=== PATIENT | female | born 1945 | race Caucasian/White ===

== ENCOUNTER → 2017-11-13 10:26 | Outpatient (CLI) | payer MEDICARE, OTHER, SELFPAY ==
--- NOTE | 2017-11-13 10:29 | US_ITS ---
STUDY: THYROID ULTRASOUND REASON FOR EXAM: Female, 72 years old. Thyroid nodule TECHNIQUE: Ultrasound evaluation of the thyroid was performed with real-time and static stahl-scale imaging. COMPARISON: None. FINDINGS: RIGHT LOBE: The right lobe of the thyroid gland measures 4.4 x 2.0 x 2.0 cm. There is a heterogeneous echotexture. There are multiple right thyroid nodules: 9 x 7 x 7 mm hypoechoic nodule, 9 x 8 x 6 mm complex nodule, 6 x 6 x 4 mm complex nodule , 8 x 7 x 5 mm isoechoic solid nodule and a 8 x 6 x 4 mm slightly hypoechoic solid nodule. All of the nodules are regular well-defined nodules. LEFT LOBE: The left lobe of the thyroid gland measures 3.8 x 1.5 x 1.6 cm. There is a heterogeneous echotexture. There are no demonstrated solid, cystic or complex lesions. ISTHMUS: The isthmus measures 3 millimeter. US/Thyroid IMPRESSION: Heterogeneous thyroid. Multiple right thyroid nodules as described above. Electronically Signed: Marisabel Vazquez MD at 21:27 EST , Service support ,
== END ==
PROVIDERS: Family Provider Family Medicine; PCP Family Medicine; Visit Provider Surgery
DX: E04.1 Nontoxic single thyroid nodule (principal); R93.8 Abnormal findings on diagnostic imaging of other specified body structures
CPT/HCPCS: 76536

== ENCOUNTER 2017-11-17 09:40 | Day surgery (SDC) | payer MEDICARE, OTHER, SELFPAY ==
[2017-11-17] VITALS (9 sets, daily range): BP systolic 101–122; BP diastolic 67–76; PULSE 59–77; RESP 16–18; TEMP 36.1–37.1; O2SAT 96–100; BMI 26.9
--- NOTE | 2017-11-17 09:54 | EKG12_ITS ---
Test Reason : PRE-OP Blood Pressure : / mmHG Vent. Rate : 072 BPM Atrial Rate : 072 BPM P-R Int : 144 ms QRS Dur : 072 ms QT Int : 390 ms P-R-T Axes : 041 -03 036 degrees QTc Int : 427 ms Normal sinus rhythm Normal ECG No previous ECGs available Confirmed by LI MUSTAFA, SIVAN ([id number]), video news editor SETH COOK ([id number]) on 11/19/2017 4:17:59 PM Referred By: Bam Arambula Confirmed By:SIVAN JEFFERSON MD
[2017-11-17 10:31] LABS: Hematocrit 40.2 % (37-47); Hemoglobin 12.7 g/dl (12.0-15.0); Mean Corp Hgb Conc 31.6 g/gl (32-36); Mean Corpuscular Hgb 28.3 pg (27.0-32.0); Mean Corpuscular Volume 89.7 fL (81-99); Platelet Count 262 K/mm3 (150-450); RBC Distribution Width CV 15.2 % (11.6-14.6); RBC Distribution Width SD 49.8 fl (35.1-43.9); Red Blood Count 4.48 M/mm3 (4.2-5.4); White Blood Count 6.8 K/mm3 (4.4-11.0)
[2017-11-17 10:34] LABS: Scan Indicated on CBC? Y/N NO
[2017-11-17 10:44] LABS: Anion Gap 6 (5-15); BUN 11 mg/dL (7-18); BUN/Creat Ratio 13.1 RATIO (10-20); Calcium,Total 9.3 mg/dL (8.5-10.1); Chloride 113 mmol/L (98-107); Creatinine, Serum 0.84 mg/dL (0.55-1.02); EST Glomerular Filtration Rate 71 mL/min (>60); Est Glom Filt Rate - Afr Amer 86 mL/min (>60); Estimated Creatinine Clearance 56.08 ml/min; Glucose 89 mg/dL (74-106); Sodium Level 144 mmol/L (136-145)
[2017-11-17] MEDS: Bupivacaine Mpf 0.5% 30 ML VIAL (11:24)
[2017-11-17] MEDS: Clindamycin 900 MG/50 ML BAG 75 MG IV (12:00)
--- NOTE | 2017-11-17 12:08 | PCM.DC.POR ---
Discharge Diet: No Restrictions - Pain medication may cause nausea. You should typically eat light foods as you take your pain medication. Discharge Activity: Return to Normal Activity, May Shower - Leave the bandage on for 2-3 days. When you remove the bandage, leave the steri-strips intact until they fall off. Additional Activity Instructions:: May not drive, work with heavy equipment, or sign legal documents for [address] if you are no longer taking narcotic pain medications. You may drive when you are no longer taking pain medications. Additional Dressing/Incision Instructions:: Leave the bandage on for 2-3 days. When you remove the bandage, leave the steri-strips intact until they fall off. Allergies/Adverse Reactions: Allergies iodine Allergy (Mild, Verified 11/14/17 10:09) Rash promethazine [From Phenergan] Allergy (Mild, Verified 11/14/17 10:09) Unknown amoxicillin [From Augmentin] Allergy (Unknown, Verified 11/14/17 10:09) Unknown clavulanic acid [From Augmentin] Allergy (Unknown, Verified 11/14/17 10:09) Unknown codeine Allergy (Unknown, Verified 11/14/17 10:09) Unknown ondansetron [From Zofran (as hydrochloride)] Allergy (Unknown, Verified 11/14/17 10:09) Unknown can tolerate sublingual Medications to take at Discharge fiber chewable tablet 2 - 4 tab PO BID 11/12/17 multivitamin tablet 1 tab PO QDAY 11/12/17 ondansetron 4 mg disintegrating tablet 4 mg PO Q4H 11/12/17 Hydrocodone Bitart/Apap 5-325 [[place] 5MG-325MG] 1 tablet PO Q6H PRN PRN 3 Days #8 tablet 11/17/17 The following prescriptions were given: Hydrocodone Bitart/Apap 5-325 [[place] 5MG-325MG] 1 tablet PO Q6H PRN PRN 3 Days #8 tablet PRN Reason: Pain Primary Care Physician: Jovon Harrison [Primary Care Provider] - Please Follow Up With: Bam Arambula MD - [phone] When: Office follow up can be as needed
--- NOTE | 2017-11-17 12:43 | PCM.OPRPT ---
Problem List (1) History of colon cancer Status: Acute Report of Operation Date of Procedure: 11/17/17 Pre-Operative Diagnosis: Recently resected colon cancer Post-Operative Diagnosis: Same Surgery/Procedure Performed:: Right internal jugular 6 [place] PowerPort placement Description of Surgical Findings:: Timeout and informed consent was obtained. 72-year-old female was taken to the operating place upon the table. She underwent monitored anesthesia care local anesthetic. Clindamycin 900 mg were given intravenously preoperatively. The right neck and chest were sterilely prepped and draped. Ultrasound was used to identify the right internal jugular vein. 1% lidocaine mixed 50-50 with 0.5% Marcaine was used as a local anesthetic. Throughout the procedure total of 17 cc was used. Local was instilled. Micropuncture needle inserted. Micropuncture wire inserted. Micropuncture sheath inserted. Fluoroscopy demonstrated good positioning. Local was instilled down upon the chest wall. Transverse incision was created and a subtenons pocket was created with electrocautery. The tubing was tunneled from the chest to the neck site. A sheath dilator was placed over the micropuncture wire and exchanged out for an 035 J-wire. Sheath dilator was placed over the J-wire. The wire and dilator were removed. The catheter was advanced to the sheath. The sheath was split. The catheter was positioned at the SVC atrial junction. It was amputated and connected the port secured to the port attachment device. The port was placed in the pocket and secured there with interrupted 2-0 silk. Skin edges approximated up to 3-0 Vicryl in interrupted 5-0 Vicryl subdermal stitches. The neck was closed with interrupted 5-0 Vicryl. The port was accessed it aspirated easily was flushed with saline and then 2.5 cc of heparinized saline. Steri-Strips Telfa OpSite dressings applied. Sponge instrument and needle counts were reported to the surgeon to be correct. Blood loss was minimal. No apparent complications. She was taken to the recovery area in satisfactory condition. Stat portable chest x-ray is pending. Blood loss minimal. Drains none. Specimens none. PowerPort reference #[id number]. Lot number [id number]. Date of expiration is 08/07/2019. Bam Arambula M.D., F.A.C.S. Type of Anesthesia:: Local MAC
--- NOTE | 2017-11-17 12:46 | OP.PCM_ITS ---
Problem List (1) History of colon cancer Status: Acute Report of Operation Date of Procedure: 11/17/17 Pre-Operative Diagnosis: Recently resected colon cancer Post-Operative Diagnosis: Same Surgery/Procedure Performed:: Right internal jugular 6 [place] PowerPort placement Description of Surgical Findings:: Timeout and informed consent was obtained. 72-year-old female was taken to the operating place upon the table. She underwent monitored anesthesia care local anesthetic. Clindamycin 900 mg were given intravenously preoperatively. The right neck and chest were sterilely prepped and draped. Ultrasound was used to identify the right internal jugular vein. 1% lidocaine mixed 50-50 with 0.5% Marcaine was used as a local anesthetic. Throughout the procedure total of 17 cc was used. Local was instilled. Micropuncture needle inserted. Micropuncture wire inserted. Micropuncture sheath inserted. Fluoroscopy demonstrated good positioning. Local was instilled down upon the chest wall. Transverse incision was created and a subtenons pocket was created with electrocautery. The tubing was tunneled from the chest to the neck site. A sheath dilator was placed over the micropuncture wire and exchanged out for an 035 J-wire. Sheath dilator was placed over the J-wire. The wire and dilator were removed. The catheter was advanced to the sheath. The sheath was split. The catheter was positioned at the SVC atrial junction. It was amputated and connected the port secured to the port attachment device. The port was placed in the pocket and secured there with interrupted 2-0 silk. Skin edges approximated up to 3-0 Vicryl in interrupted 5-0 Vicryl subdermal stitches. The neck was closed with interrupted 5-0 Vicryl. The port was accessed it aspirated easily was flushed with saline and then 2.5 cc of heparinized saline. Steri-Strips Telfa OpSite dressings applied. Sponge instrument and needle counts were reported to the surgeon to be correct. Blood loss was minimal. No apparent complications. She was taken to the recovery area in satisfactory condition. Stat portable chest x-ray is pending. Blood loss minimal. Drains none. Specimens none. PowerPort reference #[id number]. Lot number [id number]. Date of expiration is 08/07. Bam Arambula M.D., F.A.C.S. Type of Anesthesia:: Local MAC
--- NOTE | 2017-11-17 12:50 | RAD_ITS ---
STUDY: X-RAY CHEST REASON FOR EXAM: Female, 72 years old. Right port placement. TECHNIQUE: Single AP portable view of the chest. COMPARISON: None. FINDINGS: A right-sided kenn catheter has been placed. The tip is in the midportion of the superior vena cava. The lungs are clear and expanded. Scattered calcified granulomas. There is no demonstrated pleural abnormality. Normal size heart. Normal mediastinum and shantell. Normal visualized pulmonary arteries. There is atherosclerotic calcification of the aortic arch with tortuosity. Normal visualized thoracic spine. Normal visualized ribs, clavicles, and shoulders. There is no demonstrated abnormality of the visualized soft tissue structures of the upper abdomen. RAD/CXR for Line Placement IMPRESSION: The tip of the right catheter is in the midportion of the superior vena cava. Electronically Signed: Quinton Barrios MD at 13:24 EDT Tel [phone], Service support ,
== END 2017-11-17 14:25 | disposition home or self-care (01) ==
LOC: SDC 09:41 → AC 09:44
PROVIDERS: Family Provider Family Medicine; PCP Family Medicine; Visit Provider Surgery
PROC: (CPT 36558; principal; 2017-11-17 11:45)
DX: C19 Malignant neoplasm of rectosigmoid junction (principal); K43.2 Incisional hernia without obstruction or gangrene; E04.2 Nontoxic multinodular goiter; K80.20 Calculus of gallbladder without cholecystitis without obstruction; R93.8 Abnormal findings on diagnostic imaging of other specified body structures; Z93.2 Ileostomy status; Z86.718 Personal history of other venous thrombosis and embolism
CPT/HCPCS: 36558; 36415; 71045; 77001; 80048; 85027; 93005; J3010; J7120; C1788; J2405

== ENCOUNTER 2017-11-24 15:13 | Observation (INO) | payer MEDICARE, OTHER, SELFPAY ==
[2017-11-24] VITALS (10 sets, daily range): BP systolic 125–173; BP diastolic 69–81; PULSE 82–100; RESP 16–18; TEMP 36.7–37.1; O2SAT 95–98; BMI 28.1; BMI 26.4
--- NOTE | 2017-11-24 15:33 | ED.VISSUMM ---
- ER Visit Summary Date of Service: 11/24/17 Chief Complaint: Chest pain History of Present Illness: The patient is a [address] Almanzar and Dr. Shaver. She was getting a dose of oxaliplatin for the first time today. Towards the end of this toe she developed an allergic reaction with hives and vomiting. Patient reports that she vomited approximately 10 times. No blood or emesis. At the end of this she developed chest pain. She describes as a pressure that is 7 out of 10 hours and 510 currently. Is worsened by nothing and relieved by holding pressure on it. She denies any shortness of breath or diaphoresis with this. Patient has family history as her only risk factor for coronary artery disease. She denies any chest pain or change in dyspnea exertion in the past month. No ankle swelling or calf pain. She does however have a history of a DVT back in 2014 and is not anticoagulated at this time. Physical Examination: Vitals: Stable. Afebrile. General: Well-nourished and well-developed. Head: Normocephalic atraumatic. Neck: Supple, no lymphadenopathy. No JVD. Nontender. Cardiovascular: Regular rate and rhythm. No murmurs. Respiratory: No respiratory distress. Clear to auscultation bilaterally. Abdominal: Soft, nontender, nondistended, normal bowel sounds. No guarding, rebound, or peritoneal signs. Back: Nontender. Extremities: Nontender, no edema. Skin: Normal color, no rash. Neurologic: Alert and oriented ?3. Cranial nerves II through XII are intact. Normal strength and sensation. Psych: Normal affect. Test Results: EKG is sinus at 89 with no acute changes. Troponin 0 0.04. Chem-7 is more for glucose 128. CBC is marked for 7 neutrophils 88 and leukocytes of 11. Lower extreme Dopplers were negative. Chest x-ray shows trace left lower lobe atelectasis and a poor inspiration. Repeat EKG is unchanged. Repeat troponin is 0.07. Emergency Department Course and Treatment: Patient continued to have chest pain while here. She refused pain medications. She was given aspirin p.o. Treatment Plan: Had a prolonged discussion the patient and her daughter that with this pain coming just after vomiting that I suspect it is musculoskeletal in etiology. However, with her troponin increasing she will be admitted for further evaluation and treatment. She was discussed with Dr. Shaver who states that she does not need any further treatment for the allergic reaction. Instructed to follow-up with Dr. Shaver as previously scheduled. Follow-up with Dr. Almanzar for further evaluation of the chest pain if it is not improving. Return to the emergency department for any worsening symptoms. Disposition: Admitted in stable condition. Impression: 1. Colorectal cancer on chemotherapy. 2. Adverse reaction to ox [place]. 3. Vomiting. 4. Atypical chest pain. 5. NEGRITO score of 1. This note was generated with [employer] dictation software. It may contain incorrect words, spelling, and punctuation that were not noted in review of the chart prior to signing ED Disposition - Plan for ED Patient: Chief Complaint: Chest Pain Referrals: Jovon Harrison [Primary Care Provider] -
--- NOTE | 2017-11-24 15:43 | ED.DCSUM_ITS ---
- ER Visit Summary Date of Service: 11/24/17 Chief Complaint: Chest pain History of Present Illness: The patient is a [address] Almanzar and Dr. Shaver. She was getting a dose of oxaliplatin for the first time today. Towards the end of this toe she developed an allergic reaction with hives and vomiting. Patient reports that she vomited approximately 10 times. No blood or emesis. At the end of this she developed chest pain. She describes as a pressure that is 7 out of 10 hours and 510 currently. Is worsened by nothing and relieved by holding pressure on it. She denies any shortness of breath or diaphoresis with this. Patient has family history as her only risk factor for coronary artery disease. She denies any chest pain or change in dyspnea exertion in the past month. No ankle swelling or calf pain. She does however have a history of a DVT back in 2014 and is not anticoagulated at this time. Physical Examination: Vitals: Stable. Afebrile. General: Well-nourished and well-developed. Head: Normocephalic atraumatic. Neck: Supple, no lymphadenopathy. No JVD. Nontender. Cardiovascular: Regular rate and rhythm. No murmurs. Respiratory: No respiratory distress. Clear to auscultation bilaterally. Abdominal: Soft, nontender, nondistended, normal bowel sounds. No guarding, rebound, or peritoneal signs. Back: Nontender. Extremities: Nontender, no edema. Skin: Normal color, no rash. Neurologic: Alert and oriented ?3. Cranial nerves II through XII are intact. Normal strength and sensation. Psych: Normal affect. Test Results: EKG is sinus at 89 with no acute changes. Troponin 0 0.04. Chem- 7 is more for glucose 128. CBC is marked for 7 neutrophils 88 and leukocytes of 11. Lower extreme Dopplers were negative. Chest x-ray shows trace left lower lobe atelectasis and a poor inspiration. Repeat EKG is unchanged. Repeat troponin is 0.07. Emergency Department Course and Treatment: Patient continued to have chest pain while here. She refused pain medications. She was given aspirin p.o. Treatment Plan: Had a prolonged discussion the patient and her daughter that with this pain coming just after vomiting that I suspect it is musculoskeletal in etiology. However, with her troponin increasing she will be admitted for further evaluation and treatment. She was discussed with Dr. Shaver who states that she does not need any further treatment for the allergic reaction. Instructed to follow-up with Dr. Shaver as previously scheduled. Follow-up with Dr. Almanzar for further evaluation of the chest pain if it is not improving. Return to the emergency department for any worsening symptoms. Disposition: Admitted in stable condition. Impression: 1. Colorectal cancer on chemotherapy. 2. Adverse reaction to ox [place]. 3. Vomiting. 4. Atypical chest pain. 5. NEGRITO score of 1. This note was generated with [employer] dictation software. It may contain incorrect words, spelling, and punctuation that were not noted in review of the chart prior to signing ED Disposition - Plan for ED Patient: Chief Complaint: Chest Pain Referrals: Jovon Harrison [Primary Care Provider] -
--- NOTE | 2017-11-24 15:46 | VDLE_ITS ---
Reason For Study: Chest Pain RIGHT LEFT GSV is normal. GSV is normal. CFV is compressible, spontaneous, phasic, CFV is compressible, spontaneous, phasic, competent and demonstrates normal competent, and demonstrates normal augmentation. augmentation. FV is compressible, spontaneous, phasic, FV is compressible, spontaneous, phasic, competent and demonstrates normal competent and demonstrates normal augmentation. augmentation. POP V is compressible, spontaneous, phasic, POP V is compressible, spontaneous, phasic, competent and demonstrates normal competent and demonstrates normal augmentation. augmentation. T/P Trunk is compressible. T/P Trunk is compressible. PTV is compressible. PTV is compressible. RT PerV is compressible. LT PerV is compressible. Procedure Exam performed portable in ED. A preliminary report was called and/or faxed to Dr. Lombardi. Interpretation Summary Deep veins of the lower extremities are bilaterally patent and compressible segmentally. There is no evidence of deep vein thrombosis on either side. Valvular competence appears intact within the proximal deep venous systems bilaterally. The greater saphenous veins appear bilaterally patent and compressible segmentally. Ordering Physician: Anurag Lombardi Referring Physician: Jovon Harrison Performed By: Veronique Lew, MIRNA, RVT
--- NOTE | 2017-11-24 15:46 | EKG12_ITS ---
Test Reason : Blood Pressure : / mmHG Vent. Rate : 087 BPM Atrial Rate : 087 BPM P-R Int : 148 ms QRS Dur : 076 ms QT Int : 390 ms P-R-T Axes : 052 -11 040 degrees QTc Int : 469 ms Normal sinus rhythm Normal ECG Confirmed by SHRUTI BRAND ([id number]), manager editorial SETH COOK ([id number]) on 11/27/2017 2:33:23 PM Referred By: OCTAVIA Confirmed By:SHRUTI BRAND
--- NOTE | 2017-11-24 15:50 | RAD_ITS ---
STUDY: X-RAY CHEST REASON FOR EXAM: Female, 72 years old. Numbness tingling history of rectal cancer chemotherapy TECHNIQUE: Single frontal view of the chest. COMPARISON: 2017 chest x-ray FINDINGS: There is a right-sided Port-A-Cath with the tip in the spur vena cava. The lungs are underexpanded. There is trace linear density in the left lung base. There is no demonstrated pleural abnormality. There is borderline cardiomegaly. Normal mediastinum and shantell. Normal visualized pulmonary arteries. Normal visualized aortic arch and descending thoracic aorta. There are diffuse degenerative changes of the visualized thoracic spine. Normal visualized ribs, clavicles, and shoulders. There is no demonstrated abnormality of the visualized soft tissue structures of the upper abdomen. RAD/Chest 1 View (Portable) IMPRESSION: Trace left lower lobe atelectasis underexpansion of the lungs. Relatively stable chest. Port-A-Cath. Electronically Signed: Maegan De Paz MD at 16:07 EDT Tel , Service support ,
[2017-11-24 15:56] LABS: Absolute Lymphocyte Count 0.68 X10^3/ul (0.83-4.51); Absolute Neutrophil Count 5.4 X10^3/uL (2.0-7.7); Basophil# 0.02 X10^3/uL; Basophil% 0.3 % (0-1); Hematocrit 39.6 % (37-47); Hemoglobin 12.9 g/dl (12.0-15.0); Lymphocyte # 0.68 X10^3/ul (4.0); Lymphocyte % 11.1 % (19-41); Mean Corp Hgb Conc 32.6 g/gl (32-36); Mean Corpuscular Hgb 28.6 pg (27.0-32.0); Mean Corpuscular Volume 87.8 fL (81-99); Mean Platelet Vol. 10.4 fl (6.2-12.0); Monocyte# 0.05 X10^3/uL; Monocyte% 0.8 % (0-10); Neutrophil # 5.36 X10^3/uL (2.7-7.7); Neutrophil % 87.6 % (47-70); POSITIVE COUNT NO; POSITIVE DIFFERENTIAL NO; POSITIVE MORPHOLOGY NO; Platelet Count 261 K/mm3 (150-450); RBC Distribution Width CV 14.9 % (11.6-14.6); RBC Distribution Width SD 47.8 fl (35.1-43.9); Red Blood Count 4.51 M/mm3 (4.2-5.4); White Blood Count 6.1 K/mm3 (4.4-11.0)
[2017-11-24 16:13] LABS: Anion Gap 7 (5-15); BUN 11 mg/dL (7-18); Calcium,Total 9.3 mg/dL (8.5-10.1); Chloride 106 mmol/L (98-107); Creatinine, Serum 0.78 mg/dL (0.55-1.02); EST Glomerular Filtration Rate 77 mL/min (>60); Est Glom Filt Rate - Afr Amer 93 mL/min (>60); Glucose 128 mg/dL (74-106); Potassium 3.8 mmol/L (3.5-5.1); Sodium Level 139 mmol/L (136-145)
[2017-11-24] MEDS: 0.9% Normal Saline 1,000 ML 150 ML IV (17:05)
--- NOTE | 2017-11-24 17:32 | EKG12_ITS ---
Test Reason : Blood Pressure : / mmHG Vent. Rate : 089 BPM Atrial Rate : 089 BPM P-R Int : 154 ms QRS Dur : 078 ms QT Int : 392 ms P-R-T Axes : 048 -01 039 degrees QTc Int : 476 ms Normal sinus rhythm Normal ECG Confirmed by SHRUTI BRAND ([id number]), editor index SETH COOK ([id number]) on 11/27/2017 2:33:36 PM Referred By: NELIDA Confirmed By:SHRUTI BRAND
[2017-11-24] MEDS: DiphenhydrAMINE 50 MG/ML Syringe 25 MG IV (18:03)
--- NOTE | 2017-11-24 19:15 | PCM.HP.STD ---
Problem List (1) Chest pain Status: Acute Qualifiers: Chest pain type: unspecified Qualified Code(s): R07.9 - Chest pain, unspecified (2) History of colon cancer Status: Chronic (3) GERD (gastroesophageal reflux disease) Status: Chronic History of Present Illness Date of Admission: 11/24/17 Chief Complaint: chest pain The patient is a 72 year old female patient who complains of chest pain. The onset of the pain began after experiencing severe adverse reaction to chemotherapy earlier today causing her to vomit 10 times. She then noticed having substernal pressure/ pain that radiated to the left shoulder and left arm. The discomfort persists at this point. Her initial troponin was .04 and subsequent repeat in the ER was .07. It has been greater than 5 years since her last cardiac stress exam. She states her siblings have coronary artery disease. She will be admitted for further cardiac workup. Past Medical History Past Medical History (Chronic Problems): Chronic Problems (Last Updated 11/12/17 @ 08:13 by Domi Pitt) History of colon cancer (Chronic) GERD (gastroesophageal reflux disease) (Chronic) Allergies iodine Allergy (Mild, Verified 11/24/17 15:17) Rash promethazine [From Phenergan] Allergy (Mild, Verified 11/24/17 15:17) Unknown amoxicillin [From Augmentin] Allergy (Unknown, Verified 11/24/17 15:17) Unknown clavulanic acid [From Augmentin] Allergy (Unknown, Verified 11/24/17 15:17) Unknown codeine Allergy (Unknown, Verified 11/24/17 15:17) Unknown ondansetron [From Zofran (as hydrochloride)] Allergy (Unknown, Verified 11/24/17 15:17) Unknown can tolerate sublingual chlorhexadine Allergy (Mild, Uncoded 11/19/17 16:51) rash Home Medications: Ambulatory Orders Medication Instructions Recorded fiber chewable tablet 2 - 4 tab PO BID 11/12/17 multivitamin tablet 1 tab PO QDAY 11/12/17 ondansetron 4 mg disintegrating 4 mg PO Q4H PRN PRN 11/12/17 tablet Smoking Status: Never smoker - *Family History Sibling History Items: Heart Disease Review of Systems Constitutional: Denies: Chills, Fever, Weight Change HEENT: Denies: Head Aches, Sinus Congestion, Sinus Drainage Cardiovascular: Reports: Chest Pain, Chest Pressure, Heaviness. Denies: Palpitations Respiratory: Denies: Cough, Shortness of breath at rest, Sputum production Gastrointestinal: Denies: Abdominal Pain, Nausea, Vomiting Genitourinary: Denies: Dysuria Musculoskeletal: Reports: Arm Pain - left. Denies: Joint Pain, Joint Tenderness Skin: Denies: Rash, Wounds Neurological: Denies: Numbness, Tingling, Focal weakness Psychiatric: Denies: Anxiety, Depression, Homicidal Ideations, Suicidal Ideations Hematologic/ Lymphatic: Denies: Easy Bruising, Easy Bleeding VTE Information - Inpt Only VTE Present on Admission: No VTE Mechan Device Prophylaxis: None VTE Pharm Prophylaxis ordered?: Yes Patient Problems: Active and Suspected Problems (Last Updated 11/12/17 @ 08:13 by Domi Pitt) Chest pain (Acute) - Physical Exam General: Alert, Oriented x3, Cooperative HEENT: Atraumatic, Normocephalic Neck: Supple Lungs: Clear to auscultation, Normal air movement, No rhonchi, No wheeze, No rales Cardiovascular: Regular rate, Regular Rhythm, Normal S1, Normal S2, No murmurs Abdomen: Bowel Sounds Present, Soft, Non Tender Extremities: No edema, Capillary Refill Less than 3 Seconds Skin: No rashes Musculoskeletal: No Tenderness to Palpation of Joints or Extremities Neurological: Neuro grossly intact Psych/Mental Status: Normal Affect, Appropriate Vital Signs Temp Pulse Resp BP Pulse Ox 98.1 F 96 18 137/71 H 97 11/24/17 15:13 11/24/17 18:00 11/24/17 18:00 11/24/17 18:00 11/24/17 18:00 Oxygen Flow Rate (L/min) 2 Oxygen Delivery Method Room Air Weight: 174 lb 6.17 oz Body Mass Index (BMI) 28.1 Laboratory Tests Past 24 Hrs 11/24/17 11/24/17 11/24/17 15:30 15:30 17:40 WBC 6.1 RBC 4.51 Hgb 12.9 Hct 39.6 MCV 87.8 MCH 28.6 MCHC 32.6 RDW 14.9 H RDW Differential 47.8 H Plt Count 261 MPV 10.4 Immature Gran % (Auto) 0.200 Neut % (Auto) 87.6 H Lymph % (Auto) 11.1 L Coke % (Auto) 0.8 Eos % (Auto) 0.0 Baso % (Auto) 0.3 Absolute Neuts (auto) 5.4 Absolute Lymphs (auto) 0.68 L Total Counted Not Reportable Sodium 139 Potassium 3.8 Chloride 106 Carbon Dioxide 26.0 Anion Gap 7 BUN 11 Creatinine 0.78 Estim Creat Clear Calc 49.00 Est GFR (MDRD) Af Amer 93 Est GFR (MDRD) Non-Af 77 BUN/Creatinine Ratio 14.0 Glucose 128 H Calcium 9.3 Troponin I 0.04 0.07 H Assessment/Plan Active and Suspected Problems (Last Updated 11/12/17 @ 08:13 by Domi Pitt) Chest pain (Acute) Chronic conditions - colon cancer Plan - admit to progressive care unit - cycle cardiac enzymes - morphine, nitro (sparingly sibling had a severe reaction), aspirin and oxygen per routine - cbc, bmp in am - continue routine home medications - LMWH for DVT prophylaxis - nuclear exercise stress test in am when cardia markers remain negative Code Visit OBSV E&M: 68099 Initial observation care L2
[2017-11-24] MEDS: Aspirin 81 MG TAB.CHEW 324 MG PO (19:16)
[2017-11-24] MEDS: Acetaminophen 325 MG Tablet 650 MG PO (23:13)
[2017-11-25] VITALS (8 sets, daily range): BP systolic 97–133; BP diastolic 34–69; PULSE 57–79; RESP 16–18; TEMP 36.3–36.8; O2SAT 96–99
[2017-11-25 04:38] LABS: Absolute Lymphocyte Count 1.62 X10^3/ul (0.83-4.51); Absolute Neutrophil Count 10.5 X10^3/uL (2.0-7.7); Basophil# 0.01 X10^3/uL; Basophil% 0.1 % (0-1); Eosinophil# 0.02 X10^3/uL; Eosinophils% 0.1 % (0-5); Hematocrit 35.5 % (37-47); Hemoglobin 11.6 g/dl (12.0-15.0); Lymphocyte # 1.62 X10^3/ul (4.0); Lymphocyte % 12.1 % (19-41); Mean Corp Hgb Conc 32.7 g/gl (32-36); Mean Corpuscular Hgb 28.9 pg (27.0-32.0); Mean Corpuscular Volume 88.3 fL (81-99); Mean Platelet Vol. 10.3 fl (6.2-12.0); Neutrophil # 10.48 X10^3/uL (2.7-7.7); Neutrophil % 78.6 % (47-70); Platelet Count 278 K/mm3 (150-450); RBC Distribution Width CV 14.9 % (11.6-14.6); RBC Distribution Width SD 47.5 fl (35.1-43.9); Red Blood Count 4.02 M/mm3 (4.2-5.4); White Blood Count 13.4 K/mm3 (4.4-11.0)
[2017-11-25 04:39] LABS: POSITIVE COUNT NO; POSITIVE DIFFERENTIAL NO; POSITIVE MORPHOLOGY NO
[2017-11-25 04:45] LABS: Prothrombin Time (Protime)PT. 13.4 SECONDS (11.7-14.9)
[2017-11-25 04:46] LABS: Partial Thromboplast Time 27.5 Seconds (24.1-36.2)
[2017-11-25 05:10] LABS: ALB/GLOB Ratio 0.9 RATIO (0.9-2.4); AST(SGOT) 32 U/L (15-37); Alanine Aminotransfer ALT/SGPT 43 U/L (13-56); Alkaline Phosphatase 87 U/L (45-117); Anion Gap 8 (5-15); BUN 14 mg/dL (7-18); BUN/Creat Ratio 16.1 RATIO (10-20); Bilirubin, Direct 0.12 mg/dL (0.00-0.30); Chloride 109 mmol/L (98-107); Cholesterol 187 mg/dL (200); Creatinine, Serum 0.87 mg/dL (0.55-1.02); EST Glomerular Filtration Rate 69 mL/min (>60); Est Glom Filt Rate - Afr Amer 83 mL/min (>60); Estimated Creatinine Clearance 56.33 ml/min; Globulin 3.3 g/dL (2.2-4.2); Glucose 95 mg/dL (74-106); High Density Lipoprotein 56 mg/dL; Magnesium 1.9 mg/dL (1.6-2.6); Protein, Total 6.3 g/dL (6.4-8.2); Sodium Level 142 mmol/L (136-145); Triglycerides 101 mg/dL; Very Low Density Lipoprotein 20 mg/dL (5-40)
--- NOTE | 2017-11-25 05:55 | EKG12_ITS ---
Test Reason : AM EKG Blood Pressure : / mmHG Vent. Rate : 069 BPM Atrial Rate : 069 BPM P-R Int : 148 ms QRS Dur : 080 ms QT Int : 436 ms P-R-T Axes : 063 002 040 degrees QTc Int : 467 ms Normal sinus rhythm Normal ECG When compared with ECG of 24-NOV-2017 18:18, MANUAL COMPARISON REQUIRED, DATA IS UNCONFIRMED Confirmed by SHRUTI BRAND ([id number]), associate entertainment editor SETH COOK ([id number]) on 11/27/2017 3:11:28 PM Referred By: DR FELIPE Confirmed By:SHRUTI BRAND
[2017-11-25] MEDS: Aspirin E.C. 325 MG Tablet PO (06:15)
[2017-11-25] MEDS: Multivitamins,Therapeutic Tablet 1 TABLET PO (09:02)
--- NOTE | 2017-11-25 09:06 | STRESSREP ---
Stress Test Report Exercise myocardial perfusion stress test. 72-year-old lady with chest pain and abnormal cardiac enzymes postchemotherapy. Stress protocol: Resting EKG demonstrates sinus rhythm with rate of 63 bpm normal intervals and noted resting blood pressure is 118/74 mmHg. The patient exercised according to the regular Ashu protocol for total duration of 4 minutes and 30 seconds. The maximum heart rate attained was 157 bpm which was 104% of maximum predicted heart rate the maximum workload attained was 6.4 metabolic equivalents. At rest were no ST or T-wave changes noticed ischemia peak exercise upsloping ST changes only were noted with no meet the criteria for ischemia. The resting blood pressure is 118/74 with a peak blood pressure 148/60 mmHg. No clinical angina was noted. Myocardial perfusion protocol. 10.9 mCi of technetium 99m sestamibi was injected at rest. The patient exercised according to the regular Ashu protocol. 4-1/2 minutes 33.4 mCi of technetium 99m sestamibi was injected. Stress images were obtained stress and rest images were reconstructed and compared in the short axis vertical long and horizontal long axis. Gated images were also obtained Perfusion SPECT analysis: Review of the stress images demonstrate normal uptake of tracer noted in all areas of the myocardium the resting images similarly demonstrate normal uptake of tracer noted in all areas of the myocardium. No areas of reversibility are noted suggest ischemia. Gated SPECT analysis. The gated ejection fraction is noted to be 81%. Conclusion: Normal exercise myocardial perfusion stress test at a moderate workload with no evidence of ischemia. Preserved ejection fraction.
[2017-11-25] MEDS: Enoxaparin 40 MG/0.4 ML Syringe SC (09:14)
--- NOTE | 2017-11-25 09:42 | PCM.DC ---
- Discharge Diagnoses Current Active Problems: Current Active and Chronic Problems (Last Updated 11/12/17 @ 08:13 by Domi Pitt) Chest pain (Acute) You will use the following diet at home:: No restrictions Discharge Activity: Return to Normal Activity Call your doctor if you observe: Shortness of breath, Dizziness, Fainting spells, Chest pain Allergies/Adverse Reactions: Allergies iodine Allergy (Mild, Verified 11/24/17 15:17) Rash promethazine [From Phenergan] Allergy (Mild, Verified 11/24/17 15:17) Unknown amoxicillin [From Augmentin] Allergy (Unknown, Verified 11/24/17 15:17) Unknown clavulanic acid [From Augmentin] Allergy (Unknown, Verified 11/24/17 15:17) Unknown codeine Allergy (Unknown, Verified 11/24/17 15:17) Unknown ondansetron [From Zofran (as hydrochloride)] Allergy (Unknown, Verified 11/24/17 15:17) Unknown can tolerate sublingual chlorhexadine Allergy (Mild, Uncoded 11/19/17 16:51) rash Medications to take at Discharge fiber chewable tablet 2 - 4 tab PO BID 11/12/17 multivitamin tablet 1 tab PO QDAY 11/12/17 ondansetron 4 mg disintegrating tablet 4 mg PO Q4H PRN PRN 11/12/17 Primary Care Physician: Jovon Harrison [Primary Care Provider] - Please follow up with your Primary Care Physician in: 1 Week Please Follow Up With: Rajendra Shaver DO When: As scheduled Proposed Discharge Date: 11/25/17
--- NOTE | 2017-11-25 09:45 | PCM.DC.SUM ---
<Marsha Johnson - Last Filed: 11/25/17 09:51> Discharge Date and Diagnosis Date of Admission: 11/24/17 Date of Discharge: 11/25/17 - Primary Discharge Diagnosis Active and Suspected Problems (Last Updated 11/12/17 @ 08:13 by Domi Pitt) 1. Chest pain-ACS ruled out. Suspect chemo reaction. - Secondary Discharge Diagnosis Chronic Problems (Last Updated 11/12/17 @ 08:13 by Domi Pitt) History of colon cancer (Chronic) GERD (gastroesophageal reflux disease) (Chronic) Hospital Course and Treatment Imaging Results: Diagnostic Data Chest X-Ray 11/24/17 15:50 IMPRESSION: Trace left lower lobe atelectasis underexpansion of the lungs. Relatively stable chest. Port-A-Cath. Electronically Signed: Maegan De Paz MD at 16:07 EDT Tel , Service support , Operations: None Procedures: Stress test Summary of Care Provided: The patient is a 72 year old F who presented to the emergency room with chest pain and associated nausea. Patient sees Dr. Shaver for colon cancer and underwent her first chemotherapy treatment with oxaliplatin yesterday. Patient states in the middle of her chemotherapy treatment, she developed severe nausea followed by chest pain and hives. She denies further chest pain or nausea during admission. Troponin negative. She underwent nuclear stress test which was negative for ischemia. ACS ruled out. Suspect presenting symptoms were secondary to chemotherapy reaction. Her other past medical history includes hyperlipidemia, GERD, and colon cancer status post ileostomy, recently started on chemotherapy as noted above. Patient is stable for discharge home to follow-up with primary care physician and oncology as previously scheduled. Patient seen and examined prior to discharge. Heart rate regular rate and rhythm. Lungs clear. Abdomen soft, nontender, ostomy bag intact. Neuro grossly intact. Vital signs stable. Lab work unremarkable. Patient denies further chest pain and nausea/emesis. This patient was seen by TATYANA Chavez under the supervision of Dr. Flores. Discharge Diet: No Restrictions Discharge Activity: Return to Normal Activity Call your doctor if you observe: Shortness of breath, Dizziness, Fainting spells, Chest pain Home Medications: Medications to take at Discharge fiber chewable tablet 2 - 4 tab PO BID 11/12/17 multivitamin tablet 1 tab PO QDAY 11/12/17 ondansetron 4 mg disintegrating tablet 4 mg PO Q4H PRN PRN 11/12/17 Pantoprazole Sodium [Protonix] 40 mg PO DAILY #30 tab 11/25/17 Following Prescrptions Were Given to Patient: Pantoprazole Sodium [Protonix] 40 mg PO DAILY #30 tab Primary Care Physician: Jovon Harrison [Primary Care Provider] - Please follow up with your Primary Care Physician in: 1 Week Please Follow Up With: Rajendra Shaver DO When: As scheduled Disposition: Home Minutes spent on discharge:: 35 Patient Condition:: Stable Medical Necessity - Tobacco Use Smoking Status: Never smoker Meaningful Use Info Meaningful Use Diagnoses (Choose all that apply): None applicable <BaldevjessabeulahYusuf E - Last Filed: 11/25/17 14:59> Discharge Date and Diagnosis - Secondary Discharge Diagnosis Chronic Problems (Last Updated 11/12/17 @ 08:13 by Domi Pitt) History of colon cancer (Chronic) GERD (gastroesophageal reflux disease) (Chronic) Hospital Course and Treatment Summary of Care Provided: Hospitalist note: Discharge summary above reviewed and I agree with above discharge plan. Patient was admitted with chest pain. She had a history of colon cancer and she received her first chemotherapy treatment one day before admission. Her EKG revealed normal sinus rhythm without evidence of acute ischemic changes. Her first troponin was 0.04 and the second 1 was 0.07 and then came down to 0.05. Chest x-ray showed no acute infiltrate, consolidation or effusion. Her routine blood work was unremarkable. She underwent nuclear stress test that reported as negative without evidence of stress-induced myocardial ischemia. Patient symptoms improved. Her symptoms attributed to possible reaction to chemotherapy. GERD is under likely possibility as patient complains of chronic heartburn and she was on PPI in the past. Patient discharged home in a stable medical condition, discharged on Protonix 40 mg p.o. daily, continued on her home medication without any changes, recommended follow-up with PCP in 1 week. Code Visit OBSV E&M: 71389 Observation care discharge
--- NOTE | 2017-11-25 09:51 | DS.PCM_ITS ---
<Marsha Johnson - Last Filed: 11/25/17 09:51> Discharge Date and Diagnosis Date of Admission: 11/24/17 Date of Discharge: 11/25/17 - Primary Discharge Diagnosis Active and Suspected Problems (Last Updated 11/12/17 @ 08:13 by Domi Pitt ) 1. Chest pain-ACS ruled out. Suspect chemo reaction. - Secondary Discharge Diagnosis Chronic Problems (Last Updated 11/12/17 @ 08:13 by Domi Pitt) History of colon cancer (Chronic) GERD (gastroesophageal reflux disease) (Chronic) Hospital Course and Treatment Imaging Results: Diagnostic Data Chest X-Ray 11/24/17 15:50 IMPRESSION: Trace left lower lobe atelectasis underexpansion of the lungs. Relatively stable chest. Port-A-Cath. Electronically Signed: Maegan De Paz MD at 16:07 EDT Tel , Service support , Operations: None Procedures: Stress test Summary of Care Provided: The patient is a 72 year old F who presented to the emergency room with chest pain and associated nausea. Patient sees Dr. Shaver for colon cancer and underwent her first chemotherapy treatment with oxaliplatin yesterday. Patient states in the middle of her chemotherapy treatment, she developed severe nausea followed by chest pain and hives. She denies further chest pain or nausea during admission. Troponin negative. She underwent nuclear stress test which was negative for ischemia. ACS ruled out. Suspect presenting symptoms were secondary to chemotherapy reaction. Her other past medical history includes hyperlipidemia, GERD, and colon cancer status post ileostomy, recently started on chemotherapy as noted above. Patient is stable for discharge home to follow- up with primary care physician and oncology as previously scheduled. Patient seen and examined prior to discharge. Heart rate regular rate and rhythm. Lungs clear. Abdomen soft, nontender, ostomy bag intact. Neuro grossly intact. Vital signs stable. Lab work unremarkable. Patient denies further chest pain and nausea/emesis. This patient was seen by TATYANA Chavez under the supervision of Dr. Flores. Discharge Diet: No Restrictions Discharge Activity: Return to Normal Activity Call your doctor if you observe: Shortness of breath, Dizziness, Fainting spells , Chest pain Home Medications: Medications to take at Discharge fiber chewable tablet 2 - 4 tab PO BID 11/12/17 multivitamin tablet 1 tab PO QDAY 11/12/17 ondansetron 4 mg disintegrating tablet 4 mg PO Q4H PRN PRN 11/12/17 Pantoprazole Sodium [Protonix] 40 mg PO DAILY #30 tab 11/25/17 Following Prescrptions Were Given to Patient: Pantoprazole Sodium [Protonix] 40 mg PO DAILY #30 tab Primary Care Physician: Jovon Harrison [Primary Care Provider] - Please follow up with your Primary Care Physician in: 1 Week Please Follow Up With: Rajendra Shaver DO When: As scheduled Disposition: Home Minutes spent on discharge:: 35 Patient Condition:: Stable Medical Necessity - Tobacco Use Smoking Status: Never smoker Meaningful Use Info Meaningful Use Diagnoses (Choose all that apply): None applicable <BaldevjessabeulahYusuf E - Last Filed: 11/25/17 14:59> Discharge Date and Diagnosis - Secondary Discharge Diagnosis Chronic Problems (Last Updated 11/12/17 @ 08:13 by Domi Pitt) History of colon cancer (Chronic) GERD (gastroesophageal reflux disease) (Chronic) Hospital Course and Treatment Summary of Care Provided: Hospitalist note: Discharge summary above reviewed and I agree with above discharge plan. Patient was admitted with chest pain. She had a history of colon cancer and she received her first chemotherapy treatment one day before admission. Her EKG revealed normal sinus rhythm without evidence of acute ischemic changes. Her first troponin was 0.04 and the second 1 was 0.07 and then came down to 0.05. Chest x-ray showed no acute infiltrate, consolidation or effusion. Her routine blood work was unremarkable. She underwent nuclear stress test that reported as negative without evidence of stress-induced myocardial ischemia. Patient symptoms improved. Her symptoms attributed to possible reaction to chemotherapy. GERD is under likely possibility as patient complains of chronic heartburn and she was on PPI in the past. Patient discharged home in a stable medical condition, discharged on Protonix 40 mg p.o. daily, continued on her home medication without any changes, recommended follow-up with PCP in 1 week. Code Visit OBSV E&M: 27426 Observation care discharge
== END 2017-11-25 09:42 | disposition home or self-care (01) ==
LOC: ED 18:03 → PCU 19:46
PROVIDERS: Admitting Provider Family Medicine; Emergency Provider Emergency Medicine; Family Provider Family Medicine; PCP Family Medicine; Visit Provider Hospitalist
DX: R07.89 Other chest pain (principal); K21.9 Gastro-esophageal reflux disease without esophagitis; C18.9 Malignant neoplasm of colon, unspecified; E78.5 Hyperlipidemia, unspecified; R11.2 Nausea with vomiting, unspecified; T45.1X5A Adverse effect of antineoplastic and immunosuppressive drugs, initial encounter; Z93.2 Ileostomy status; Z86.718 Personal history of other venous thrombosis and embolism; M79.602 Pain in left arm; L50.0 Allergic urticaria
CPT/HCPCS: 36591; 71045; 78452; 80048; 80053; 80061; 82248; 83735; 84484; 85025; 85610; 85730; 93005; 93017; 93970; 96361; 96372; 96374; 96375; 97802; 99218; 99284; A9500; A4216; G0378

== ENCOUNTER → 2018-05-04 08:39 | Outpatient (CLI) | payer MEDICARE, OTHER, SELFPAY | PROVIDERS: Family Provider Family Medicine; PCP Family Medicine; Visit Provider Internal Medicine Hematology & Oncology | DX: C18.9 Malignant neoplasm of colon, unspecified (principal); Z93.2 Ileostomy status ==

== ENCOUNTER → 2019-01-07 08:14 | Outpatient (CLI) | payer MEDICARE, OTHER, SELFPAY ==
[2018-12-31 10:51] VITALS: BMI 29.4
--- NOTE | 2019-01-07 08:17 | RAD_ITS ---
STUDY: GASTROGRAFIN ENEMA. REASON FOR EXAM: Female, 73 years old. Assessment of the rectosigmoid anastomosis. FLUOROSCOPY TIME (if supplied): (0:58) minutes/seconds TECHNIQUE: Gastrografin was introduced retrograde through the rectum. The colon was opacified. COMPARISON: None. FINDINGS: There is no evidence of obstruction to the antegrade or retrograde flow of blood Gastrografin. There is no evidence of leakage. Large amount of fecal material is seen within the right hemicolon. RAD/Barium Enema w/Air Contrast IMPRESSION: No evidence of obstruction. No evidence of leakage at the anastomotic site. Electronically Signed: Quinton Barrios, at 14:33 EDT , Service support ,
== END ==
PROVIDERS: Family Provider Family Medicine; PCP Family Medicine; Referring Provider Surgery; Visit Provider Surgery
DX: C19 Malignant neoplasm of rectosigmoid junction (principal)
CPT/HCPCS: 74280

== ENCOUNTER 2019-01-15 06:56 | Day surgery (SDC) | payer MEDICARE, OTHER, SELFPAY ==
[2018-12-31 10:51] VITALS: BMI 29.4
--- NOTE | 2018-12-31 16:23 | HP_ITS ---
Intake Vital Signs 12/31/18 Height 5 ft 5 in 12/31/18 Weight: 177 lb 12/31/18 Body Mass Index (BMI) 29.4 12/31/18 Blood Pressure 122/70 H 12/31/18 Blood Pressure Location Lt brachial 12/31/18 Blood Pressure Position Sitting 12/31/18 Respiratory Rate 18 Intake Visit Reasons: Ostomy Reversal Application Developer Required: No Is patient in pain?: No Allergies iodine Allergy (Mild, Verified 12/31/18 10:53) Rash promethazine [From Phenergan] Allergy (Mild, Verified 12/31/18 10:53) Unknown amoxicillin [From Augmentin] Allergy (Unknown, Verified 12/31/18 10:53) Unknown clavulanic acid [From Augmentin] Allergy (Unknown, Verified 12/31/18 10:53) Unknown codeine Allergy (Unknown, Verified 12/31/18 10:53) Unknown ondansetron [From Zofran (as hydrochloride)] Allergy (Unknown, Verified 12/31/18 10:53) Unknown chlorhexadine Allergy (Mild, Uncoded 12/31/18 10:53) rash Medications fiber chewable tablet 2 - 4 tab PO BID 11/12/17 [History Confirmed 12/31/18] multivitamin tablet 1 tab PO QDAY 11/12/17 [History Confirmed 12/31/18] ondansetron 4 mg disintegrating tablet 4 mg PO Q4H PRN PRN 11/12/17 [History Confirmed 12/31/18] Pantoprazole Sodium [Protonix] 40 mg PO DAILY #30 tab 11/25/17 [Rx Confirmed 12/31/18] PFSH Medical History Gallstones (Acute) Multinodular thyroid (Acute) Incisional hernia (Acute) Hyperlipemia (Acute) History of colon cancer (Chronic) GERD (gastroesophageal reflux disease) (Chronic) Surgical History S/P ileostomy (Acute) S/P tonsillectomy (Acute) Port-A-Cath in place (Acute) Family History Father Cancer Testicular cancer Brother Colon cancer Mother Heart disease Son Heart disease Social History Smoking Status: Never smoker second hand exposure: No alcohol intake: current alcohol intake frequency: holidays/special occasions only Alcohol type: wine substance use type: does not use seatbelt use: always HPI HPI HPI: NOVA CARSON, is a 73 F who presents to the office today for HPI HPI Surgical H&P: Yes HPI: NOVA CARSON is a 73 F who presents to the office today for surgical consultation regarding takedown of her loop ileostomy. 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 Rajendra Shaver and a written copy of my surgical consult be returned to him. 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 July 23, 2017 she had a flexible sigmoidoscopy and a distal sigmoid stent placed to alleviate a colonic obstruction from cancer. She had had attempted a preoperative colonoscopy and actually never has had a completed colonoscopy. She had 2 flexible sigmoidoscopies. Subsequently on August 18, 2017 she had a laparoscopic mobilization of the splenic flexure done at [facility] but then it was converted to an open procedure and a low anterior resection with stapled anastomosis and loop ileostomy was done. The patient developed a wound infection. She has subsequently developed an incisional hernia. She also has asymptomatic gallstones. 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 The closest surgical margin was 2 mm. Stage III. [id number]. The patient has subsequently under the care of Dr. Rajendra Shaver receiving adjuvant chemotherapy. She also has hypercalcemia/hyperparathyroidism and as of November 18 calcium was 9.5 with a phosphorus 3.3 and a vitamin D 25-hydroxy of 25 with normal being 30-100 and a PTH intact of 76 with normal being 15-65. At that same setting her CEA level was 5.7. The patient has been very cautious about wanting a takedown of her ileostomy. She is fearful that she may still have residual disease or require repeat operation. She states that infrequently she will pass stool per rectum or have flatus per rectum. 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 and she is on chronic anticoagulation on Xarelto ROS General General: Yes weight change, appetite, fatigue and colon cancer; no breast cancer or weakness HEENT HEENT: Yes difficulty swallowing; no eye injury, eye surgery, swollen glands or hoarseness Endo Endocrine: No thyroid disease, diabetes mellitus, thyroid cancer, Hair loss, heat intolerance or cold intolerance Skin Skin: No rash or changing moles Breast Breast: No left breast lump, right breast lump, nipple discharge, breast pain, abnormal mammogram, abnormal US or breast enlargement [facility] [place]culoskeletal: No back problems, arthritis, rheumatoid arthritis, gout or joint pain Cardio Cardiovascular: No murmur, pacemaker, heart disease, atrial fibrillation, high blood pressure, heart attack, heart stent, palpitations, shortness of breat with exertion or chest pain Psych Psychiatric: No depression, anxiety or hearing voices Resp Respiratory: No shortness of breath, No sleep apnea, No cough, No COPD, No asthma, No emphysema, No wheezing Gastro Gastrointestinal: No abdominal pain, No nausea or vomiting, No diarrhea, No constipation, No blood in stool, Yes acid reflux, No hemorrhoids, No ulcers, No gallbladder problem, No black,tarry stools Royce Hematologic: Yes blood thinners, No blood disorders, No bleeding, No anemia, Yes blood clots Neuro Neurologic: No system reviewed and no additional complaints, except as docu, No as per HPI, No abnormal walking, No abnormal hearing, No abnormal movements, No abnormal speech, No behavioral changes, No burning sensations, No confusion, No seizure-like activity, No unsteadiness, No dizziness, No localized weakness, No frequent falls, No headache(s), No lack of coordination, No loss of vision, No memory loss, Yes numbness, No other visual disturbances, No radiating pain, No restless legs, No sensory deficit, No fainting, Yes tingling, No tremor(s), No weakness, No other Exam Const General: cooperative, comfortable, no acute distress Nutritional Appearance: average body habitus Orientation: alert, awake [facility] Head: normal to inspection Chest Chest palpation & inspection: normal inspection of the chest Breast Palpation: No nipple discharge Resp Effort & Inspection: normal respiratory effort Auscultation: clear to auscultation bilaterally Cardio Rate: regular rate Rhythm: regular rhythm Heart Sounds: no murmurs GI Palpation: soft Auscultation: normal bowel sounds Other: Infraumbilical midline incision with evidence of previous wound infection and incisional defect consistent with hernia reducible. Right lower quadrant loop ileostomy with mild skin irritation [facility] [place]ervical Spine: normal cervical lordosis Neuro General: alert, awake Extrem Other: Support hose in place Psych Affect: normal affect Assessment & Plan Problems 1. Gallstones K80.20 2. Incisional hernia, without obstruction or gangrene K43.2 3. S/P ileostomy Z93.2 4. History of colon cancer Z85.038 Plan 73-year-old female. She has had a history of a low anterior resection of the colon with a diverting loop ileostomy. She has not had an inspection of the anastomosis nor actually has she ever had a complete colonoscopy from her diagnosis. She has had 2 previous flexible sigmoidoscopies with incomplete exam secondary to her obstructing colon cancer. She has a diverting loop ileostomy. She has gallstones but these are not symptomatic. She has an incisional hernia and had a previous wound infection. I propose for her a very limited Gastrografin enema to inspect the anastomosis. I proposed for her a colonoscopy attempt with possible biopsy or polypectomy is indicated. Because the patient has a diverting ileostomy we will have to rely upon enemas in order to prep the patient. I also propose a takedown of her loop ileostomy and I described the technique, benefits, risks, alternatives. No guarantees of success have been offered. If I am not successful with a preoperative colonoscopy then the patient is aware that after she completely heals her takedown ileostomy that I strongly recommend a repeat attempt at completing a full colonoscopy at that time. She has had an opportunity to ask and have questions answered. I very much appreciate the ongoing opportunity of assisting with her surgical care. Bam Arambula M.D., F.A.C.S. Orders Orders: Barium Enema w/Air Contrast Today C19 Coding Level of Care Code Comprehensive,moderate Diagnoses Gallstones K80.20 Incisional hernia, without obstruction or gangrene K43.2 ??Obstruction and gangrene presence: without obstruction or gangrene S/P ileostomy Z93.2 History of colon cancer Z85.038 I have re-examined the patient. There are no clinical changes since date of exam.
[2019-01-15 07:53] VITALS: BP 138/78; PULSE 70; RESP 14; TEMP 36.2; O2SAT 99; BMI 28.3
[2019-01-15] MEDS: Ondansetron ODT 4 MG Tablet PO (09:25)
--- NOTE | 2019-01-15 10:00 | COLBX_PTH ---
PATIENT: NOVA CARSON LOC: EN U#:[id number] AGE/SX: 73/F ROOM: RE01/15/[address]: Dr. Bam Arambula MD : 1945 BED: DIS: 01/15/2019 SPEC #: [id number] RECD: 01/15/19 10:54 STATUS: CHRISTIAN PATTONAma #: [id number] DL: 01/15/19 10:[address]: Bam Arambula DEPT: SURGICAL PATHOLOGY RECD BY: Ron Márquez ENTERED: 01/15/19 12:39 SP TYPE: COLON BX OTHR DR: Dr. Jovon Harrison MD Tissues: A - Ascending colon B - Sigmoid colon biopsy Procedures: Surgery Specimen Level IV HEADER OPERATION: Colonoscopy (MAC) PRE-OP DIAGNOSIS: Evaluate for ileostomy reversal TISSUE SUBMITTED: A - Ascending colon biopsy, B - Mid sigmoid colon biopsy MICROSCOPIC DIAGNOSIS A. Ascending colon, biopsy: A fragment of colonic mucosa with mild nonspecific chronic inflammation and lymphoid aggregate formation, favor benign. B. Mid sigmoid colon, biopsy: A fragment of colonic mucosa, no pathologic diagnosis. DHRUV:daysi 01/18/19 MICROSCOPIC DESCRIPTION Slides are reviewed. GROSS DESCRIPTION A - Received in fixative is one container labeled with the patient's name and designated ascending colon biopsy. The specimen consists of one irregular fragment of light britt soft tissue that measures 0.4 x 0.2 x 0.1 cm. The specimen is totally submitted in one cassette. B - Received in fixative is one container labeled with the patient's name and designated mid sigmoid colon biopsy. The specimen consists of one irregular fragment of light britt soft tissue that measures 0.3 x 0.2 x 0.1 cm. The specimen is totally submitted in one cassette. / DHRUV:daysi 01/15/19 TC:5 CPT: 07673 x2
[2019-01-15 10:40] VITALS: BP 111/66; BP 138/78; PULSE 84; RESP 16; TEMP 36.5; O2SAT 97
--- NOTE | 2019-01-15 10:43 | OP.ENDO_ITS ---
01/15/2019 Rajendra Shaver [address] [place] [address] Re : Colonoscopy procedure for Ericka Walls Dear Dr. Shaver This procedure was performed on Tuesday, January 15, 2019. My impressions and recommendations are as follows: Impressions : - Hemorrhoids found on perianal exam. - Patent end-to-end colo-rectal anastomosis, characterized by healthy appearing mucosa. 7cm from anal verge - Increased mucosa vascular pattern in the sigmoid colon and in the ascending colon. Biopsied. Consistent with bowel disuse mucosal pattern Recommendations : - Discharge patient to home. - Resume previous diet. - Continue present medications. - Repeat colonoscopy in 3 years for surveillance. - Return to my office in 5 days. My findings are described in the full procedure note, which is enclosed. If I can be of further assistance, please feel free to contact me at Doctor phone number(s): Work: . Sincerely, Bam Arambula MD 01/15/2019 10:43:11 AM This report has been signed electronically.
[2019-01-15 10:45] VITALS: BP 112/67; BP 138/78; PULSE 83; RESP 16; O2SAT 95
[2019-01-15 10:50] VITALS: BP 114/73; BP 138/78; PULSE 82; RESP 16; O2SAT 95
[2019-01-15 11:30] VITALS: BP 138/78
== END 2019-01-15 11:45 | disposition home or self-care (01) ==
LOC: EN 06:57 → AC 06:58
PROVIDERS: Family Provider Family Medicine; PCP Family Medicine; Referring Provider Family Medicine; Visit Provider Surgery
PROC: 0DJD8ZZ Inspection of Lower Intestinal Tract, Via Natural or Artificial Opening Endoscopic (ICD-10-PCS; CPT 45378; principal; 2019-01-15 09:55)
DX: K64.9 Unspecified hemorrhoids (principal); K80.20 Calculus of gallbladder without cholecystitis without obstruction; K43.2 Incisional hernia without obstruction or gangrene; Z93.2 Ileostomy status; Z85.038 Personal history of other malignant neoplasm of large intestine; Z98.0 Intestinal bypass and anastomosis status; K21.9 Gastro-esophageal reflux disease without esophagitis; Z86.718 Personal history of other venous thrombosis and embolism
CPT/HCPCS: 45380; 88305; J7120; A4216

== ENCOUNTER → 2019-03-01 09:30 | Outpatient (CLI) | payer MEDICARE, OTHER, SELFPAY ==
[2019-03-01 08:50] VITALS: BMI 28.3
== END ==
PROVIDERS: Family Provider Family Medicine; PCP Family Medicine; Referring Provider Surgery; Visit Provider Surgery
DX: Z85.038 Personal history of other malignant neoplasm of large intestine (principal); Z01.818 Encounter for other preprocedural examination
CPT/HCPCS: 80053; 82378; 85027

== ENCOUNTER 2019-03-08 05:13 | Inpatient (IN) | payer MEDICARE, OTHER, SELFPAY ==
[2019-03-01 08:50] VITALS: BMI 28.3
[2019-03-01 11:24] VITALS: BP 135/77; PULSE 65; RESP 16; TEMP 36.8; O2SAT 100; BMI 29.0
[2019-03-01 11:27] LABS: Hematocrit 37.8 % (37-47); Hemoglobin 12.5 g/dl (12.0-15.0); Mean Corp Hgb Conc 33.1 g/gl (32-36); Mean Corpuscular Hgb 29.2 pg (27.0-32.0); Mean Corpuscular Volume 88.3 fL (81-99); Mean Platelet Vol. 10.5 fl (6.2-12.0); Platelet Count 243 K/mm3 (150-450); RBC Distribution Width CV 12.8 % (11.6-14.6); RBC Distribution Width SD 40.8 fl (35.1-43.9); Red Blood Count 4.28 M/mm3 (4.2-5.4); White Blood Count 6.3 K/mm3 (4.4-11.0)
[2019-03-01 11:28] LABS: Scan Indicated on CBC? Y/N NO
[2019-03-01 11:40] LABS: ALB/GLOB Ratio 1.1 RATIO (0.9-2.4); AST(SGOT) 32 U/L (15-37); Alanine Aminotransfer ALT/SGPT 32 U/L (13-56); Albumin, Serum 3.7 g/dL (3.2-5.0); Alkaline Phosphatase 91 U/L (45-117); Anion Gap 7 (5-15); BUN 16 mg/dL (7-18); BUN/Creat Ratio 15.5 RATIO (10-20); Calcium,Total 9.3 mg/dL (8.5-10.1); Chloride 111 mmol/L (98-107); Creatinine, Serum 1.03 mg/dL (0.55-1.02); EST Glomerular Filtration Rate 56 mL/min (>60); Est Glom Filt Rate - Afr Amer 68 mL/min (>60); Globulin 3.4 g/dL (2.2-4.2); Glucose 93 mg/dL (74-106); Potassium 4.2 mmol/L (3.5-5.1); Protein, Total 7.1 g/dL (6.4-8.2); Sodium Level 142 mmol/L (136-145)
--- NOTE | 2019-03-05 09:41 | EKG12_ITS ---
Test Reason : PRE OP Blood Pressure : / mmHG Vent. Rate : 065 BPM Atrial Rate : 065 BPM P-R Int : 136 ms QRS Dur : 074 ms QT Int : 390 ms P-R-T Axes : 045 -11 027 degrees QTc Int : 405 ms Normal sinus rhythm Normal ECG Confirmed by ASHLEY MUSTAFA, HANNA ([id number]), index editor JAVI SAMSON ([id number]) on 03/08/2019 2:00:46 PM Referred By: Bam Arambula Confirmed By:HANNA RAMIREZ MD
[2019-03-07 02:00] VITALS: BP 117/74; PULSE 68; RESP 18; TEMP 36.4; O2SAT 98; BMI 29.0
[2019-03-08] VITALS (11 sets, daily range): BP systolic 113–155; BP diastolic 64–89; PULSE 68–97; RESP 16; TEMP 36.2–36.8; O2SAT 94–100
--- NOTE | 2019-03-08 | STOMA_PTH ---
PATIENT: NOVA CARSON LOC: MS3 U#:[id number] AGE/SX: 73/F ROOM: KS304 RE03/08/[address]: Dr. Bam Arambula MD : 1945 BED: 1 DIS: 03/10/2019 SPEC #: [id number] RECD: 03/08/19 12:41 STATUS: CHRISTIAN MARLINE #: [id number] DL: 03/08/19 00:[address]: Bam Armabula DEPT: SURGICAL PATHOLOGY RECD BY: Jarrod Gautam ENTERED: 03/08/19 12:42 SP TYPE: STOMA OTHR DR: Dr. Jovon Harrison MD Tissues: A - Colon, NOS B - Gallbladder, NOS C - APPENDIX (INCIDENTAL) Procedures: Surgery Specimen Level II Surgery Specimen Level III HEADER OPERATION: Colostomy take down, parastomal hernia repair, laparoscopic PRE-OP DIAGNOSIS: Incisional hernia; gallstones; history of colon cancer; status post ileostomy TISSUE SUBMITTED: A - Ileal stoma, B - Gallbladder, C - Appendix MICROSCOPIC DIAGNOSIS A. Ileal stoma: Ileal stoma with mucosal congestion and acute and chronic inflammation. B. Gallbladder, cholecystectomy: Chronic cholecystitis and cholelithiasis. C. Appendix, incidental appendectomy: Appendix, no pathologic diagnosis. Periappendiceal adipose tissue with focal congestion and hemorrhage. SJ:daysi 03/09/19 MICROSCOPIC DESCRIPTION Slides are reviewed. GROSS DESCRIPTION A - Received in fixative is one container labeled with the patient's name and designated ileal stoma. The specimen consists of a segment of small intestine measuring 6 cm in length. Both resection margins are stapled. The center portion of the segment of bowel shows skin with an opening consistent with stoma measuring 3.5 cm in greatest dimension. Multiple sutures are noted consistent with stoma opening. No mucosal lesions are identified. Also present within the container are two pieces of bowel tissue with multiple dario measuring in aggregate 1 x 0.5 x 0.5 cm. Soil Conservationist sections are submitted in three cassettes as follows: 1 - resection margins, 2 - stoma, 3??call center support representative section from other areas. B - Received is one container labeled with the patient's name and designated gallbladder. The specimen consists of a gallbladder measuring 9 cm in length and up to 3.5 cm in diameter. The external surface is pink-britt, smooth and glistening for the most part. Focally it is granular, hemorrhagic and contains cautery artifact. The gallbladder contains green-yellow mucoid bile and multiple black, multifaceted stones measuring in aggregate 6 x 5 x 2 cm and 0.1 to 1 cm in greatest dimension. The mucosa is bile-stained and without any mass lesions. The gallbladder wall measures up to 0.2 cm in thickness. Soil Conservationist sections from the gallbladder and the cystic duct are submitted in one cassette. C - Received is one container labeled with the patient's name and designated appendix. The specimen consists of an appendix with attached periappendiceal adipose tissue measuring 6.5 cm in length and 0.3 cm in diameter. No obvious perforation is identified. The lumen does not contain any fecalith. The attached periappendiceal adipose tissue measures up to 2 cm in width. Sections of periappendiceal adipose tissue do not reveal any obviously lymph node and reveals focal area of congestion and hemorrhage. Soil Conservationist sections are submitted in one cassette. / SJ:rg 03/08/19 TC:5 CPT: 56771 x2, 17741
[2019-03-08] MEDS: Gabapentin 600 MG Tablet PO (06:07)
[2019-03-08] MEDS: Acetaminophen 500 MG Tablet 1000 MG PO ×3 (06:07→23:35)
[2019-03-08 06:26] LABS: Bedside Glucose 76 mg/dL (70-110)
[2019-03-08] MEDS: Magnesium Sulfate 4gm/100mL 4 GM/100 ML IV.SOLN. IV (06:28)
[2019-03-08] MEDS: Lactated Ringers 1,000 ML 40 ML IV (06:29)
[2019-03-08] MEDS: Lidocaine/D5W 2,000 MG/250 ML IV.SOLN 2000 MG (07:09)
[2019-03-08] MEDS: Lidocaine/D5W 2,000 MG/250 ML IV.SOLN 23.76 MG IV (07:33)
[2019-03-08] MEDS: BUPIVACAINE LIPOSOME/PF 20 ML VIAL OPERA.SITE (09:34)
[2019-03-08] MEDS: Bupivacaine 0.25% 30 ML Vial (09:35)
--- NOTE | 2019-03-08 09:55 | HP.PCM_ITS ---
Problem List (1) S/P ileostomy Status: Acute Comment: 08/19/2017 (2) Gallstones Status: Acute (3) Incisional hernia Status: Acute Qualifiers: History and Physical Date of Admission: 03/08/19 MR#:[id number]:[id number] Name: NOVA CARSON Rep #: [id number] : 1945 Provider: Maci baig PA-C Age/Sex: 73/F Location: [facility] Status: Signed Intake Vital Signs 03/01/19 Body Mass Index (BMI) 28.3 03/01/19 Height 5 ft 5 in 03/01/19 Weight: 175 lb 03/01/19 Body Mass Index (BMI) 29.1 03/01/19 Blood Pressure 131/76 H 03/01/19 Blood Pressure Location Rt brachial 03/01/19 Blood Pressure Position Sitting 03/01/19 Respiratory Rate 18 03/01/19 Pulse Rate 69 03/01/19 Pulse Source Monitor 03/01/19 Temperature 97.9 F 03/01/19 Temperature Source Oral 03/01/19 Pulse Ox 99 03/01/19 Oxygen Delivery Method room air Intake Visit Reasons: update h&p ileostomy takedown 7-1 RC Chief Complaint: post c-scope/ discuss surgery Instrument Lens Generator Required: No Is patient in pain?: No Allergies iodine Allergy (Mild, Verified 03/01/19 11:08) Rash promethazine [From Phenergan] Allergy (Mild, Verified 03/01/19 11:08) Unknown amoxicillin [From Augmentin] Allergy (Unknown, Verified 03/01/19 11:08) Unknown clavulanic acid [From Augmentin] Allergy (Unknown, Verified 03/01/19 11:08) Unknown codeine Allergy (Unknown, Verified 03/01/19 11:08) Unknown ondansetron [From Zofran (as hydrochloride)] Allergy (Unknown, Verified 03/01/19 11:08) Unknown chlorhexadine Allergy (Mild, Uncoded 03/01/19 11:08) rash Medications ondansetron 4 mg disintegrating tablet 4 mg PO Q4H PRN PRN 11/12/17 [History Confirmed 03/01/19] Cholecalciferol (VIT D3) [Vitamin D] 2,000 unit PO DAILY 01/12/19 [History Confirmed 03/01/19] Rivaroxaban [Xarelto] 20 mg PO DAILY 01/12/19 [History Confirmed 03/01/19] Ibuprofen 200 mg PO Q4H 03/01/19 [History Confirmed 03/01/19] Pantoprazole Sodium [Protonix] 40 mg PO DAILY 03/01/19 [History Confirmed 03/01/19] PFSH Medical History Gallstones (Acute) Multinodular thyroid (Acute) Incisional hernia (Acute) Hyperlipemia (Acute) History of colon cancer (Chronic) GERD (gastroesophageal reflux disease) (Chronic) Surgical History S/P ileostomy (Acute) S/P tonsillectomy (Acute) History of colonoscopy (Acute ~01/2019) Port-A-Cath in place (Acute) Family History Father Cancer Testicular cancer Brother Colon cancer Mother Heart disease Son Heart disease Social History (Updated 03/02/19 @ 12:32 by Maci Herrera PA-C) Smoking Status: Never smoker second hand exposure: No alcohol intake: current alcohol intake frequency: holidays/special occasions only Alcohol type: wine substance use type: does not use seatbelt use: always HPI HPI HPI: NOVA CARSON, is a 73 F who presents to the office today for HPI HPI Surgical H&P: Yes HPI: NOVA CARSON, is a 73 F who presents to the office today for an update history and physical for ostomy takedown, cholecystectomy, hernia repair and possible appendectomy. Patient denies recent hospitalizations or illnesses. She notes discomfort with her sciatic nerve radiating into her leg. Patient denies previous cardiac history. She notes history of bilateral lower extremity blood clots last November or December. Patient is currently on Xarelto. Patient notes her last CEA level was 5.7, however she had a CEA level drawn at [facility] which demonstrated a level of 2.3. She is concerned that this is still elevated. She would like to have the CEA level redrawn prior to the procedure. Patient also notes sensitivity to anesthesia. She notes oral Zofran works better for nausea than IV zofran. Patient's previous history per Dr. Arambula: NOVA CARSON, is a 73 F who presents to the office today for surgical consultation regarding takedown of her loop ileostomy. The patient is referred by her wind turbine erector oncologist Dr. Rajendra Shaver and a written copy of my surgical consult be returned to him. 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 July 23, 2017 she had a flexible sigmoidoscopy and a distal sigmoid stent placed to alleviate a colonic obstruction from cancer. She had had attempted a preoperative colonoscopy and actually never has had a completed colonoscopy. She had 2 flexible sigmoidoscopies. Subsequently on August 18, 2017 she had a laparoscopic mobilization of the splenic flexure done at [facility] but then it was converted to an open procedure and a low anterior resection with stapled anastomosis and loop ileostomy was done. The patient developed a wound infection. She has subsequently developed an incisional hernia. She also has asymptomatic gallstones. 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 The closest surgical margin was 2 mm. Stage III. [id number]. The patient has subsequently under the care of Dr. Rajendra Shaver receiving adjuvant chemotherapy. She also has hypercalcemia/hyperparathyroidism and as of November 18 calcium was 9.5 with a phosphorus 3.3 and a vitamin D 25-hydroxy of 25 with normal being 30-100 and a PTH intact of 76 with normal being 15-65. At that same setting her CEA level was 5.7. The patient has been very cautious about wanting a takedown of her ileostomy. She is fearful that she may still have residual disease or require repeat operation. She states that infrequently she will pass stool per rectum or have flatus per rectum. 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 and she is on chronic anticoagulation on Xarelto. As noted above she had a low anterior resection with a protecting ileostomy. Because of the concern about possible recurrent disease the ileostomy never has been taken back down. To help her back into compliance on January 15, 2019 I performed a colonoscopy. The bowel had disuse but there were no focal lesions. The anastomotic site was widely patent. I did take some biopsies of the colon where the vascular pattern appeared abnormal however that pathology was simply consistent with some chronic inflammation and lymphoid aggregate there was no evidence of malignancy. The patient has gallstones on imaging. She has a ileostomy with a parastomal hernia. She also has apparently a previous history of incisional hernia in the infraumbilical midline. She questions whether her appendix is still present and whether that should be dealt with. It is of additional note that I assisted her November 17, 2017 with placement of a right internal jugular port. ROS General General: Yes weight change, appetite, fatigue and colon cancer; no breast cancer or weakness HEENT HEENT: Yes difficulty swallowing; no eye injury, eye surgery, swollen glands or hoarseness Endo Endocrine: No thyroid disease, diabetes mellitus, thyroid cancer, Hair loss, heat intolerance or cold intolerance Skin Skin: No rash or changing moles Breast Breast: No left breast lump, right breast lump, nipple discharge, breast pain, abnormal mammogram, abnormal US or breast enlargement Musc Musculoskeletal: No back problems, arthritis, rheumatoid arthritis, gout or joint pain Cardio Cardiovascular: No murmur, pacemaker, heart disease, atrial fibrillation, high blood pressure, heart attack, heart stent, palpitations, shortness of breat with exertion or chest pain Psych Psychiatric: No depression, anxiety or hearing voices Resp Respiratory: No shortness of breath, No sleep apnea, No cough, No COPD, No a sthma, No emphysema, No wheezing Gastro Gastrointestinal: No abdominal pain, No nausea or vomiting, No diarrhea, No constipation, No blood in stool, Yes acid reflux, No hemorrhoids, No ulcers, No gallbladder problem, No black,tarry stools Royce Hematologic: Yes blood thinners, No blood disorders, No bleeding, No anemia, Yes blood clots Neuro Neurologic: No weakness Exam Const General: cooperative, healthy appearing, comfortable, no acute distress [facility] Head: normal to inspection Eyes General: appearance normal, both eyes and all related structures Neck Neck: normal visual inspection Neck mass: No Chest Breast Palpation: No nipple discharge Resp Effort & Inspection: normal respiratory effort Auscultation: clear to auscultation bilaterally Cardio Rate: regular rate Rhythm: regular rhythm Heart Sounds: no murmurs GI Inspection: normal to inspection Palpation: soft Auscultation: normal bowel sounds Skin General: no rashes or lesions noted Neuro General: no focal motor deficits, CN's II-XI intact bilaterally Extrem General: normal to inspection Psych Appearance: grossly normal Affect: normal affect Assessment & Plan Problems 1. Incisional hernia, without obstruction or gangrene K43.2 2. Gallstones K80.20 3. History of colon cancer Z85.038 4. S/P ileostomy Z93.2 08/19/[address] Arambula will plan to perform an ileostomy takedown with parastomal hernia repair without mesh, laparoscopic cholecystectomy with intraoperative cholangiogram and possible appendectomy. Procedure details, risks and benefits have been reviewed. Patient has had the opportunity to ask and have questions answered. Patient verbally understands and agrees with the plan. Patient will be considered ERAS. No pre-op oral antibiotics will be used. She will use 1 bottle of magnesium citrate for bowel prep. She will hold Xarelto for 48 hours prior to the procedure. I will order a repeat CEA level to verify if her level has decreased. Patient is aware she will be admitted following the procedure. Orders Orders: Comprehensive Metabolic Profil 03/01/19 Z01.818, Z85.038 CBC-Complete Blood Cnt No Diff 03/01/19 Z01.818, Z85.038 Carcinoembryonic Antigen 03/01/19 Z01.818, Z85.038 Coding Level of Care Code No Charge Diagnoses Incisional hernia, without obstruction or gangrene K43.2 ??Obstruction and gangrene presence: without obstruction or gangrene Gallstones K80.20 History of colon cancer Z85.038 S/P ileostomy Z93.2 Comment Update H&P 03/02/19 1232 <Electronically signed by Maci hwang PA-C> Date _ Maci Herrera PA-C Cosigner Signature: Date (if applicable) CC: ~ I have re-examined the patient. There are no clinical changes since date of exam.
--- NOTE | 2019-03-08 09:56 | PCM.OPRPT ---
Problem List (1) S/P ileostomy Status: Acute Comment: 08/19/2017 (2) Gallstones Status: Acute (3) Incisional hernia Status: Acute Qualifiers: Report of Operation Date of Procedure: 03/08/19 Pre-Operative Diagnosis: History of colon cancer. Ileostomy. Peristomal hernia. Chronic cholecystitis cholelithiasis. Incidental appendix Post-Operative Diagnosis: Same Surgery/Procedure Performed:: Takedown of ileostomy with primary ileal ileal anastomosis. Repair of parastomal incisional hernia. Laparoscopic cholecystectomy. Laparoscopic appendectomy. Bilateral KATIA block Description of Surgical Findings:: Timeout and informed consent was obtained. 73-year-old female was taken out from placement table underwent general endotracheal intubation anesthesia. Cefotetan 2 g given intravenously preoperatively. The abdomen was prepped and draped with ChloraPrep. Louise-stoma area gently prepped with Betadine. A slightly transverse elliptical excision so as to completing competence of the ileostomy was performed. Sharp dissection carried down through the substance tissue hernia sac peristomal he was encountered this was incised circumferential dissection was performed completely releasing the terminal ileum. Laparotomy packs were placed around the incision. The mesentery to the ileostomy was transected with hemostats and 0 chromic ligatures. The bowel was transected proximally distally with a ADI 55 stapler and the specimen was submitted. Holding sutures of 2-0 silk placed. Enterotomies were created with electrocautery. A functional end-to-end anastomosis was created by placing the bowel side to side and using the 55 mm ADI stapler. Then the enterotomies were closed with a TA 60 stapler. I inverted the staple line and closed the trap with a running 3-0 silk. Very viable anastomosis was achieved with nicely patent bowel. Hemostasis was intact. The bowel drop back within the abdomen. Gloves were changed. The peristomal hernia and now with fascial defect was approximated with multiple [id number] of 0 Nurolon. The son catheter was placed centrally. The abdomen was insufflated with CO2 to a pressure of 10 mmHg pressure. 5-minute trochars placed in the epigastrium right lower quadrant and right lateral abdomen. The gallbladder was grasped and distracted. Tedious and careful blunt dissection was used to that the infundibulum until clearly the cystic duct and cystic artery was identified. Hemo-lock clip was placed on the cystic duct stump however there was malfunction of the clip and it fractured. A portion of that clip could be removed. There was a small remaining portion that could not be identified. This was despite vigorous inspection. I placed a second hemo-lock clip now slightly more proximally on that cystic duct. I placed a second clip and then the third clip. I transected the duct. I secured the cystic artery proximally distally with a hemo-lock clip prior to transecting it. The right hepatic artery was clearly on view and preserved. The gallbladder was then carefully dissected free from the liver bed using electrocautery complete hemostasis was intact. Carefully sharply dissected free releasing the adhesions. A window was made in the mesoappendix in a standard high laparoscopic ADI stapler was used to transect the appendix flush with the cecum. The mesoappendix was secured with vascular right stapler. There was still some oozing from the mesoappendix which I secured with a couple hemo-lock clips. Then the appendix and the gallbladder was placed within a retrieval bag. They were exited at the umbilicus. The abdomen was inspected. The site of the primary ileal ileal anastomosis was nicely viable. Appendiceal base at the site of the resection was clean and dry. The PEG subhepatic space was clean and dry. The trochars were removed. The remaining fascial defect at the site where I placed the Crowe at the ileostomy was closed with several interrupted simple sutures of 0 Nurolon. That wound was then irrigated. That transverse wound was then partially approximated laterally with interrupted 4-0 Monocryl subdermal stitches leaving the central portion open for drainage. I placed two 3-0 silk sutures placed quarter-inch Chuy drain into the defect and secured that with the sterile safety pin through the stitches. The remaining trocar sites were closed with interrupted 4 Monocryl subdermal stitches. Telfa and OpSite dressings were applied were pertinent. Gauze dressing was applied at the ileostomy site. It is of note that after the appendectomy and prior to closure I performed a bilateral tap block under laparoscopic visualization. 20 cc of Exparel mixed with 40 cc of 0.25% Marcaine mixed with 40 cc of saline was used as the agent. Under careful laparoscopic inspection tap block was performed bilaterally. I felt that I nicely got this in the transversalis/oblique plane. Remaining of the local was used in the subcutaneous sites. Sponge and instrument and needle counts were reported to surgically correct. Blood loss was minimal. She tolerated the procedure well was taken to the recovery room in satisfactory condition without apparent complication. Specimens gallbladder and appendix and ileal stomal. Drains quarter-inch Refugio into the stomal site, blood loss minimal. Bam Arambula M.D., F.A.C.S. attention was now given to the appendix which had adhesions to the terminal ileum. The terminal ileum was Type of Anesthesia:: General Anesthesiologist: Nessa Fischer
--- NOTE | 2019-03-08 11:17 | CASEMGMT ---
RN CM Assessment Presentation: Pt presented for surgery today, take down of ileostomy, choley Intro role of CM and purpose of RN CM assessment to daughter, Aminata Felder in room (nurse @ [facility]). Demographics, PCP and Pharmacy verified with her. Daughter Aminata very familiar with her mother's condition has been involved in her care after previous surgery and will be available after this surgery. PCP: Dr. Jovon Harrison Specialists: Dr. Bam Arambula, Surgeon; Dr. Shaver, Oncology Preferred Pharmacy: [facility] Insurance: [facility] Prescription Benefit: yes LNOK: Liz Felder, nima Living Arrangements: Lives in two story home with her disabled son. Per daughter, pt was independent prior to admission. Has first floor set up with hospital bed and bathroom. Daughter Viktoria is caring for disabled brother and daughters will be available on discharge to assist pt. Transportation: family can drive patient. DME: walker, cane, hospital bed, handicap accessible shower, denies oxygen at home. HHC: in past, not sure which agency. Patient DC goals: Home DC PLAN: Home, will re-evaluate after surgery for Home Health needs for RN or PT/OT. Argenis HENSON RN ACM
[2019-03-08] MEDS: Ondansetron ODT 4 MG Tablet PO (12:10)
[2019-03-08] MEDS: Ibuprofen 200 MG Tablet PO ×3 (17:16→23:34)
[2019-03-08] MEDS: Docusate Sodium 100 MG Capsule PO (21:33)
[2019-03-09] MEDS: Ibuprofen 200 MG Tablet PO ×6 (03:13→23:24)
[2019-03-09] MEDS: Lactated Ringers 1,000 ML 40 ML IV (03:13)
[2019-03-09 03:15] VITALS: BP 119/66; PULSE 78; RESP 16; TEMP 37.3; O2SAT 94
--- NOTE | 2019-03-09 06:08 | PCM.PN.SRG ---
Subjective: Ache in abd, no flatus St cath x 1 with subsequent spontaneous void - Physical Exam Abdomen: Soft, Hypoactive Bowel Sounds - mild staining on dressing from ela Vital Signs Temp Pulse Resp BP Pulse Ox 99.2 F H 78 16 119/66 94 03/09/19 03:15 03/09/19 03:15 03/09/19 03:15 03/09/19 03:15 03/09/19 03:15 Oxygen Flow Rate (L/min) 2 Oxygen Delivery Method Room Air Weight: 174 lb 9.698 oz Body Mass Index (BMI) 29.0 Intake and Output for Last 24 Hours 03/07/19 03/08/19 03/09/19 23:59 23:59 23:59 Intake Total 2562 / 2562 Output Total 900 / 900 Balance 1662 / 1662 POC Glucose 03/08/19 06:02 POC Glucose 76 Medical Necessity - Tobacco Use Smoking Status: Never smoker Tobacco Use: Non-smoker Assessment/Plan All Active Problems (Last Reviewed 03/01/19 @ 08:47 by Anca Duffy) Chest pain (Acute) Gallstones (Acute) Multinodular thyroid (Acute) Incisional hernia (Acute) Hyperlipemia (Acute) S/P ileostomy (Acute) S/P tonsillectomy (Acute) Transitional diet Advance ela drain today Mobilize pt
[2019-03-09] MEDS: Enoxaparin 40 MG/0.4 ML Syringe 30 MG SC (06:17)
[2019-03-09] MEDS: Acetaminophen 500 MG Tablet 1000 MG PO ×4 (06:17→23:38)
[2019-03-09 07:25] VITALS: BP 120/76; PULSE 66; RESP 16; TEMP 37; O2SAT 96
[2019-03-09] MEDS: Pantoprazole Sodium 40 MG Tablet PO (07:29)
[2019-03-09] MEDS: Docusate Sodium 100 MG Capsule PO ×2 (07:29→20:58)
[2019-03-09 11:06] VITALS: BP 119/68; PULSE 67; RESP 16; TEMP 37; O2SAT 97
[2019-03-09 11:32] VITALS: O2SAT 93
[2019-03-09 15:34] VITALS: BP 127/70; PULSE 77; RESP 16; TEMP 37.2; O2SAT 95
--- NOTE | 2019-03-09 16:59 | PCM.PN.BLA ---
Progress Note Excellent progress Will advance to transitional diet Hopeful DC tomorrow with pt instructions on self drain advancement
[2019-03-09] MEDS: 0.9% NaCl Peripheral Flush Adult/Peds IV (17:17)
[2019-03-09 20:57] VITALS: BP 132/70; PULSE 76; RESP 16; TEMP 36.6; O2SAT 95
[2019-03-10 03:00] VITALS: BP 112/76; PULSE 75; RESP 16; TEMP 36.8; O2SAT 97
[2019-03-10] MEDS: Ibuprofen 200 MG Tablet PO ×3 (03:15→12:31)
[2019-03-10] MEDS: Enoxaparin 40 MG/0.4 ML Syringe 30 MG SC (06:12)
--- NOTE | 2019-03-10 06:12 | PCM.PN.SRG ---
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 use - Physical Exam Abdomen: Bowel Sounds Present, Soft, Non Tender Vital Signs Temp Pulse Resp BP Pulse Ox 98.2 F 75 16 112/76 97 03/10/19 03:00 03/10/19 03:00 03/10/19 03:00 03/10/19 03:00 03/10/19 03:00 Oxygen Flow Rate (L/min) 2 Oxygen Delivery Method Room Air Weight: 174 lb 9.698 oz Body Mass Index (BMI) 29.0 Intake and Output for Last 24 Hours 03/08/19 03/09/19 03/10/19 23:59 23:59 23:59 Intake Total 2562 / 2562 2332 / 2332 Output Total 900 / 900 2049 / 2049 Balance 1662 / 1662 282 / 282 Medical Necessity - Tobacco Use Smoking Status: Never smoker Tobacco Use: Non-smoker Assessment/Plan All Active Problems (Last Reviewed 03/01/19 @ 08:47 by Anca Duffy) Chest pain (Acute) Gallstones (Acute) Multinodular thyroid (Acute) Incisional hernia (Acute) Hyperlipemia (Acute) S/P ileostomy (Acute) S/P tonsillectomy (Acute) One does of imodium Discharge today Pt will daily remove ela
--- NOTE | 2019-03-10 06:13 | DCINST_ITS ---
Discharge Diet: Light diet - advance as tolerated - if you have questions about your diet instructions, please talk to you doctor. Discharge Activity: May Not Drive - for 3-5 days or while taking narcotic pain medicine. May shower in (days): 1 Lifting Restrictions: 10 pounds Call your doctor if your incision/area has: Continuous Slow Oozing, Sudden Increased Bleeding, Increased Pain/ Swelling, Increased Redness, Foul Smelling Discharge Call your doctor if you observe: Fever of 101 or Higher Suture Line Care: Avoid Pulling/Pushing, Avoid Pinching/Bending Additional Dressing/Incision Instructions:: Remove plastic dressings in 2 days and then leave steri strips for one week please. Advance ela drain daily approximately 1 inch till completely removed within 3 days. Cleanse with qtip and peroxide. Keep this site clean and dry until drainage completely stops then you may shower. May remove sutures when drain is out Additional Instructions: May resume Xarelto on 03/11/19 please Allergies/Adverse Reactions: Allergies clavulanic acid [From Augmentin] Allergy (Mild, Verified 03/05/19 12:02) iching iodine Allergy (Mild, Verified 03/01/19 11:08) Rash promethazine [From Phenergan] Allergy (Mild, Verified 03/01/19 11:08) Unknown codeine Allergy (Unknown, Verified 03/01/19 11:08) Unknown ondansetron [From Zofran (as hydrochloride)] Allergy (Unknown, Verified 03/01/19 11:08) Unknown can tolerate sublingual Medications to take at Discharge ondansetron 4 mg disintegrating tablet 4 mg PO Q4H PRN PRN 11/12/17 Cholecalciferol (VIT D3) [Vitamin D] 2,000 unit PO DAILY 01/12/19 Rivaroxaban [Xarelto] 20 mg PO DAILY 01/12/19 Ibuprofen 200 mg PO Q4H 03/01/19 Pantoprazole Sodium [Protonix] 40 mg PO DAILY 03/01/19 Primary Care Physician: Jovon Harrison MD [Primary Care Provider] - Test Results: Test results from this visit will be discussed in further detail at your follow- up appointment, if applicable. Please Follow Up With: Bam Arambula MD - [phone] When: Call to make an appointment to be seen in about 10 days.
[2019-03-10] MEDS: Acetaminophen 500 MG Tablet 1000 MG PO ×2 (06:19→11:30)
[2019-03-10] MEDS: Loperamide 2 MG Capsule 4 MG PO (06:26)
[2019-03-10 07:20] VITALS: O2SAT 97
[2019-03-10 08:06] VITALS: BP 125/81; PULSE 74; RESP 16; TEMP 36.9; O2SAT 95
[2019-03-10] MEDS: Pantoprazole Sodium 40 MG Tablet PO (11:31)
[2019-03-10] MEDS: 0.9% NaCl VAD Flush IV (13:14)
[2019-03-10 13:52] VITALS: BP 119/67; PULSE 87; RESP 18; TEMP 37.2; O2SAT 96
== END 2019-03-10 14:17 | disposition home or self-care (01) | DRG 330 ==
LOC: ACINP 05:14 → MS3 05:25
PROVIDERS: Physician Assistant; Admitting Provider Surgery; Family Provider Family Medicine; PCP Family Medicine; Referring Provider Surgery; Visit Provider Surgery
PROC: 0DQE4ZZ Repair Large Intestine, Percutaneous Endoscopic Approach (ICD-10-PCS; CPT 44227; principal; 2019-03-08 06:55)
DX: Z43.2 Encounter for attention to ileostomy (principal); K80.10 Calculus of gallbladder with chronic cholecystitis without obstruction; K43.5 Parastomal hernia without obstruction or gangrene; Z79.01 Long term (current) use of anticoagulants; Z86.718 Personal history of other venous thrombosis and embolism
CPT/HCPCS: 36591; 80053; 82378; 82962; 85027; 88302; 88304; 93005; J7050; J7120; A4216

== ENCOUNTER → 2019-03-16 10:33 | Outpatient (CLI) | payer MEDICARE, OTHER, SELFPAY ==
[2019-03-07 02:00] VITALS: BMI 29.0
--- NOTE | 2019-03-16 10:36 | VDLE_ITS ---
Reason For Study: Pain RIGHT LEFT CFV is compressible, spontaneous, phasic, GSV is normal. competent and demonstrates normal CFV is compressible, spontaneous, phasic, augmentation. competent, and demonstrates normal Procedure augmentation. Exam performed in department. FV is compressible, spontaneous, phasic, A preliminary report was called and/or faxed competent and demonstrates normal to Tyesha. augmentation. POP V is compressible, spontaneous, phasic, competent and demonstrates normal augmentation. T/P Trunk is compressible. PTV is compressible. LT PerV is compressible. Interpretation Summary There is no evidence of left lower extremity deep vein thrombosis. Left greater saphenous vein appears patent and compressible segmentally. Normal flow patterns right common femoral vein Ordering Physician: Bam Arambula Referring Physician: Jovon Harrison Performed By: Nena Mckeon RVT
== END ==
PROVIDERS: Family Provider Family Medicine; PCP Family Medicine; Referring Provider Surgery; Visit Provider Surgery
DX: M79.662 Pain in left lower leg (principal)
CPT/HCPCS: 93971

== ENCOUNTER 2020-09-05 07:39 | Day surgery (SDC) | payer MEDICARE, OTHER, SELFPAY ==
[2020-08-18 12:45] VITALS: BMI 28.0
[2020-09-05 08:00] VITALS: BP 137/71; PULSE 80; RESP 96; TEMP 36.3; O2SAT 96; BMI 26.7
--- NOTE | 2020-09-05 08:03 | HP.PCM_ITS ---
Problem List (1) Change in bowel habit Status: Acute (2) Chest pain Status: Acute Qualifiers: History and Physical Date of Admission: 09/05/20 Intake Visit Reasons: INCISIONAL HERNIA Chief Complaint: Possible ventral hernia Kettle Coordinator Required: No Is patient in pain?: No Allergies oxaliplatin Allergy (Intermediate, Verified 08/18/20 13:20) nausea and vomiting clavulanic acid [From Augmentin] Allergy (Mild, Verified 08/18/20 12:47) iching iodine Allergy (Mild, Verified 08/18/20 12:47) Rash promethazine [From Phenergan] Allergy (Mild, Verified 08/18/20 12:47) Unknown codeine Allergy (Unknown, Verified 08/18/20 12:47) Unknown ondansetron [From Zofran (as hydrochloride)] Allergy (Unknown, Verified 08/18/20 12:47) Unknown Medications cholecalciferol (vitamin D3) 25 mcg (1,000 unit) tablet 5,000 unit PO DAILY tab 08/18/20 [History Confirmed 08/18/20] ibuprofen 200 mg tablet 200 mg PO Q4H PRN 08/18/20 [History Confirmed 08/18/20] multivitamin 1 cap PO DAILY 08/18/20 [History] pantoprazole 20 mg tablet,delayed release 20 mg PO DAILY 08/18/20 [History Confirmed 08/18/20] PFS Medical History Chest pain (Acute) Gallstones (Acute) Multinodular thyroid (Acute) Incisional hernia (Acute) Hyperlipemia (Acute) History of colon cancer (Chronic) GERD (gastroesophageal reflux disease) (Chronic) Surgical History S/P ileostomy (Acute) S/P tonsillectomy (Acute) History of appendectomy (Acute ~03/2019) History of cholecystectomy (Acute ~03/2019) History of colonoscopy (Acute ~01/2019) History of reversal of ileostomy (Acute ~03/2019) Port-A-Cath in place (Acute) Family History Father Cancer Testicular cancer Brother Colon cancer Mother Heart disease Son Heart disease Social History (Updated 08/18/20 @ 15:[address] Bam Arambula MD) Smoking Status: Never smoker second hand exposure: No alcohol intake: current alcohol intake frequency: holidays/special occasions only Alcohol type: wine substance use type: does not use seatbelt use: always HPI HPI HPI: NOVA CARSON, is a 75 F who presents to the office today for surgical evaluation regarding what she suspects to be a ventral incisional hernia representing a recurrence from a previous parastomal hernia. She has additional concerns regarding stomach upset. She has gurgling and abdominal cramping after eating. She will have bowel movements sporadically sometimes with small output and sometimes with voluminous output. July 2017 she had a distal sigmoid stent placed because of colonic obstruction from malignancy. At [facility] she then had an open low anterior resection with stapled anastomosis and loop ileostomy. That was complicated by wound infection. She had stage III disease [id number]. She had ongoing oncology treatment with Dr. Rajendra Shaver. I then assisted her March 08, 2019 with a takedown of her ileostomy with a primary ileal ileal anastomosis and repair of a parastomal incisional hernia combined with a laparoscopic cholecystectomy and laparoscopic appendectomy and a bilateral tap block. As of July 03, 2020 her CEA level was 1.8. Her liver function tests have remained normal. She is not anemic. On December 28, 2019 at the [facility] she had a CT scan of the abdomen. She had adverse reaction to the contrast dye. There is no evidence of metastatic disease. There is no comment that at that time that she has a ventral incisional hernia but actually that CT demonstrates a ventral incisional hernia in the right upper quadrant related to her parastomal hernia repair breakdown and she also has a separate small umbilical hernia. Because of her contrast dye reaction she had additional follow-up on July 03, 2020 at the [facility] with an MRI of the abdomen. No metastatic disease was identified in the abdomen. That study also does not me ntion abdominal wall findings. The patient states that she is able to palpate a reducible mass in the right upper quadrant. She states that it is intermittently tender. She is not sure whether this correlates with her GI symptoms. Her symptoms are somewhat vague being epigastric mean abdomen and discomfort and inability to eat large meals having to eat smaller amounts with subsequent gas and and cramping. As noted she has erratic bowel movement with sometimes no movement of her bowels for 3 or 4 days sometimes small amounts of stools and sometimes explosive amounts of stool. She has not noticed any bright red blood per rectum or melena. She states that she noticed this hernia after a large sneeze several months ago. She correlates her change in abdominal comfort and bowel habits about at the same time. HPI HPI HPI: NOVA CARSON, is a 75 F who presents to the office today for ROS General General: Yes fatigue; no weight change, appetite, colon cancer, breast cancer or weakness HEENT HEENT: No difficulty swallowing, eye injury, eye surgery, swollen glands or hoarseness Endo Endocrine: No thyroid disease, diabetes mellitus, thyroid cancer, Hair loss, heat intolerance or cold intolerance Skin Skin: No rash or changing moles Breast Breast: No left breast lump, right breast lump, nipple discharge, breast pain, abnormal mammogram, abnormal US or breast enlargement Musc Musculoskeletal: Yes back problems and arthritis; no rheumatoid arthritis, gout or joint pain Cardio Cardiovascular: No murmur, pacemaker, heart disease, atrial fibrillation, high blood pressure, heart attack, heart stent, palpitations, shortness of breat with exertion or chest pain Psych Psychiatric: No depression, anxiety or hearing voices Resp Respiratory: No shortness of breath, No sleep apnea, No cough, No COPD, No asthma, No emphysema, No wheezing Gastro Gastrointestinal: Yes abdominal pain, Yes nausea or vomiting, No diarrhea, No constipation, No blood in stool, Yes acid reflux, No hemorrhoids, No ulcers, No gallbladder problem, No black,tarry stools Royce Hematologic: No blood thinners, No blood disorders, No bleeding, No anemia, No blood clots Neuro Neurologic: No system reviewed and no additional complaints, except as docu, No as per HPI, No abnormal walking, No abnormal hearing, No abnormal movements, No abnormal speech, No behavioral changes, No burning sensations, No confusion, No seizure-like activity, No unsteadiness, No dizziness, No localized weakness, No frequent falls, No headache(s), No lack of coordination, No loss of vision, No memory loss, No numbness, No other visual disturbances, No radiating pain, No r estless legs, No sensory deficit, No fainting, No tingling, No tremor(s), No weakness, No other Exam Const General: cooperative, comfortable, no acute distress Nutritional Appearance: average body habitus Orientation: alert, awake [facility] Head: normal to inspection Eyes General: appearance normal, both eyes and all related structures Chest Breast Palpation: No nipple discharge Resp Effort & Inspection: normal respiratory effort Auscultation: clear to auscultation bilaterally Cardio Rate: regular rate Rhythm: regular rhythm Heart Sounds: no murmurs GI Palpation: soft, no hepatosplenomegaly Other: Transverse incision right upper mid abdomen with a palpable central defect and possible fibrofatty tissue which is currently reducible. No rebound or guarding. No otherwise unexpected focal mass. Normal bowel sounds. Musc Cervical Spine: normal cervical lordosis Skin General: no rashes or lesions noted Neuro Cognition: normal cognition Extrem General: no calf tenderness Psych Affect: normal affect Assessment & Plan Problems 1. Recurrent ventral incisional hernia K43.2 2. Change in bowel habit R19.4 Plan 75-year-old female. History of advanced distal sigmoid cancer resected within a protecting ileostomy left in place. She had a parastomal hernia at that location and had a combined ileostomy takedown parastomal hernia repair laparoscopic cholecystectomy laparoscopic appendectomy March 08, 2019. Now she has evidence suggesting a recurrent ventral incisional hernia in the right upper mid abdomen which I can see on her CT scan from December 2019. She also has a small umbilical hernia at that time. She is not symptomatic from that currently. She seemingly has had an acute change of bowel habit with nondescript abdominal cramping and bloating. She is at higher risk for recurrent disease. I have offered a combined esophagogastroduodenoscopy with possible biopsy as well as colonoscopy with possible biopsy or polypectomy as indicated. She is aware of technique, benefit, risk of alternatives. Very careful inspection for any potential source of bowel habit change will be pursued as well as potential for biopsies looking for H. pylori or evening possible eosinophilic esophagitis and microcytic colitis potentially in light of the patient's newfound allergies and now intolerance to IV dye. I will recommend a future right upper quadrant recurrent ventral incisional hernia repair. With COVID-19 surging I am not in favor of pursuing that at this time. The area is still reducible. The patient has had an opportunity to ask and have questions answered regarding that. Hopefully sometime in the new 2020 somewhere between October and December the incidence of COVID-19 will be diminishing and we can pursue her incisional hernia repair at that time. This may be reopened accomplished with a Ventralex mesh could require conversion to a laparoscopic approach as well. I would need to be prepared for potential overnight stay. I appreciate the opportunity of continue to assist with her surgical care Copy: Kendy Eller NP and Dr. Rajendra Shaver and Dr. Lainey Arambula M.D., F.A.C.S. I have re-examined the patient. There are no clinical changes since date of exam. Procedure Criteria Procedure Type: Elective COVID Risk Discussion: The surgeon/proceduralist and patient have discussed in detail the risk of exposure to and/or potential harm posed by the COVID-19 virus with having a surgery/procedure at this time versus the risk of delaying the surgery/procedure. It is not possible to know either the risk of delaying the surgery or procedure or chance of getting an infection with perfect accuracy, but a joint decision was made between the patient and the surgeon/proceduralist to proceed at this time with the scheduled surgery/procedure as indicated on the consent form.
[2020-09-05] MEDS: Lactated Ringers 1,000 ML 100 ML IV (08:05)
--- NOTE | 2020-09-05 08:45 | COLBX_PTH ---
PATIENT: NOVA CARSON LOC: EN U#:[id number] AGE/SX: 75/F ROOM: RE09/05/[address]: Dr. Bam Arambula MD : 1945 BED: DIS: 09/05/2020 SPEC #: [id number] RECD: 09/05/20 11:41 STATUS: CHRISTIAN HORAN #: [id number] DL: 09/05/20 08:[address]: Bam Arambula DEPT: SURGICAL PATHOLOGY RECD BY: Anne Crespo ENTERED: 09/05/20 12:16 SP TYPE: COLON BX OTHR DR: Dr. Lainey Burton MD Tissues: A - Gastric mucous membrane B - Gastric mucous membrane C - Esophagus, NOS D - COLON BIOPSY Procedures: Surgery Specimen Level IV HEADER OPERATION: [place] [place] DIAGNOSIS: Change in bowel habit TISSUE SUBMITTED: A - Antrum biopsy for histo and H. pylori, B - Greater curvature polyp biopsy, C - Distal esophagus biopsy, D - Random colonic biopsy MICROSCOPIC DIAGNOSIS A. Gastric antrum, biopsy: Chronic gastritis. See comment. B. Greater curvature polyp, biopsy: Fundic gland polyp. C. Distal esophagus, biopsy: Fragments of benign squamous mucosa. No evidence of inflammation. D. Colon, random biopsy: No pathologic change. AM:daysi 09/06/20 COMMENT A. The results of immunohistochemistry for Helicobacter pylori will be reported separately ([id number]). MICROSCOPIC DESCRIPTION Slides are reviewed. GROSS DESCRIPTION A - Received in fixative is one container labeled with the patient's name and designated antrum biopsy. The specimen consists of one irregular fragment of light britt soft tissue that measures 0.6 x 0.2 x 0.1 cm. The specimen is totally submitted in one cassette. B - Received in fixative is one container labeled with the patient's name and designated greater curvature polyp biopsy. The specimen consists of one irregular fragment of light britt soft tissue that measures 0.6 x 0.5 x 0.1 cm. The specimen is totally submitted in one cassette. C - Received in fixative is one container labeled with the patient's name and designated distal esophagus biopsy. The specimen consists of multiple irregular fragments of light britt soft tissue that in aggregate measure 0.6 x 0.6 x 0.1 cm. The specimen is totally submitted in one cassette. D - Received in fixative is one container labeled with the patient's name and designated random colon biopsy. The specimen consists of multiple irregular fragments of light britt soft tissue that in aggregate measure 2 x 0.8 x 0.1 cm. The specimen is totally submitted in one cassette. / AM:daysi 09/05/20 TC:3 CPT: 79114 x4
--- NOTE | 2020-09-05 08:45 | IMM_PTH ---
PATIENT: NOVA CARSON LOC: EN U#:[id number] AGE/SX: 75/F ROOM: RE09/05/[address]: Dr. Bam Arambula MD : 1945 BED: DIS: 09/05/2020 SPEC #: [id number] RECD: 09/05/20 12:35 STATUS: CHRISTIAN REQ #: [id number] DL: 09/05/20 08:[address]: Bam Arambula DEPT: IMMUNOHISTOCHEMISTRY RECD BY: Laura Huerta ENTERED: 09/05/20 12:35 SP TYPE: IMMUNO OTHR DR: Dr. Lainey Burton MD Tissues: A - Stomach, NOS Procedures: H Pylori (initial) PHYSICIAN & INSTITUTION [place] [id number] SPECIMEN INFORMATION: Tissue Source: A - Antrum biopsy Clinical Info: Change in bowel habit Specimen Number: [id number] CPT code: 59987 METHODOLOGY: Deparaffinized sections of prefer/formalin-fixed tissue or PAP/DQ stained slides are incubated with monoclonal/polyclonal antibodies/oligonucleotide probes. Localization is made via biotin free immunoperoxidase method. Appropriate controls are performed and reacted as expected. Results on target cell population are indicated in the following table: RESULTS: ANTIBODY / CLONE RESULT Block A H Pylori (polyclonal) negative These tests were developed and their performance characteristics determined by [facility]. They may not have been cleared or approved by the U.S. Food and Drug Administration. The FDA has determined that such clearance or approval is not necessary. INTERPRETATION: A. Antrum, biopsy: Negative for Helicobacter pylori organisms. AM:daysi 09/06/20
[2020-09-05 09:15] VITALS: BP 137/71; PULSE 87; RESP 16; TEMP 35.9; O2SAT 95
--- NOTE | 2020-09-05 09:17 | OP.EGD_ITS ---
Patient Name: Ericka Walls Procedure Date: 09/05/2020 8:44 AM Date of : 1945 Age: 75 Procedure: Upper GI endoscopy Indications: Epigastric abdominal pain Providers: Bam Arambula MD Referring MD: Lainey Burton Medicines: See the Anesthesia note for documentation of the administered medications Complications: No immediate complications. Procedure: Pre-Anesthesia Assessment: - Prior to the procedure, a History and Physical was performed, and patient medications and allergies were reviewed. The patient's tolerance of previous anesthesia was also reviewed. The risks and benefits of the procedure and the sedation options and risks were discussed with the patient. All questions were answered, and informed consent was obtained. Prior Anticoagulants: The patient has taken no previous anticoagulant or antiplatelet agents. ASA Grade Assessment: II - A patient with mild systemic disease. After reviewing the risks and benefits, the patient was deemed in satisfactory condition to undergo the procedure. After obtaining informed consent, the endoscope was passed under direct vision. Throughout the procedure, the patient's blood pressure, pulse, and oxygen saturations were monitored continuously. The Endoscope was introduced through the mouth, and advanced to the second part of duodenum. The upper GI endoscopy was accomplished without difficulty. The patient tolerated the procedure well. Scope In: 8:51:49 AM Scope Out: 8:56:44 AM Total Procedure Duration Time 0 hours 4 minutes 55 seconds Findings: LA Grade A (one or more mucosal breaks less than 5 mm, not extending between tops of 2 mucosal folds) esophagitis with no bleeding was found 38 cm from the incisors. Biopsies were taken with a cold forceps for histology. A medium-sized hiatal hernia was present. Multiple pedunculated and sessile polyps with no stigmata of recent bleeding were found in the entire examined stomach. The polyp was removed with a cold biopsy forceps. Resection and retrieval were complete. Diffuse minimal inflammation characterized by erythema was found in the gastric antrum. Biopsies were taken with a cold forceps for histology. The examined duodenum was normal. Impression: - LA Grade A reflux esophagitis. Biopsied. - Medium-sized hiatal hernia. - Multiple gastric polyps. Resected and retrieved. - Chronic gastritis. Biopsied. - Normal examined duodenum. Recommendation: - Discharge patient to home. - Resume previous diet. - Continue present medications. - Telephone my office for pathology results in 1 week. Procedure Code(s): --- Professional --- 45919, Esophagogastroduodenoscopy, flexible, transoral; with biopsy, single or multiple Diagnosis Code(s): --- Professional --- K21.0, Gastro-esophageal reflux disease with esophagitis K44.9, Diaphragmatic hernia without obstruction or gangrene K31.7, Polyp of stomach and duodenum K29.50, Unspecified chronic gastritis without bleeding R10.13, Epigastric pain CPT copyright 2017 [employer]. All rights reserved. The codes documented in this report are preliminary and upon delivery driver assistant review may be revised to meet current compliance requirements. Bam Arambula MD 09/05/2020 9:16:54 AM This report has been signed electronically. Number of Addenda: 0 Note Initiated On: 09/05/2020 8:44 AM
--- NOTE | 2020-09-05 09:17 | OP.CCLET_ITS ---
09/05/2020 Lainey Burton [address] [place] [address] Re : Upper GI endoscopy procedure for Ericka Luevanoish Dear Dr. Burton This procedure was performed on Saturday, September 05, 2020. My impressions and recommendations are as follows: Impressions : - LA Grade A reflux esophagitis. Biopsied. - Medium-sized hiatal hernia. - Multiple gastric polyps. Resected and retrieved. - Chronic gastritis. Biopsied. - Normal examined duodenum. Recommendations : - Discharge patient to home. - Resume previous diet. - Continue present medications. - Telephone my office for pathology results in 1 week. My findings are described in the full procedure note, which is enclosed. If I can be of further assistance, please feel free to contact me at Doctor phone number(s): Work: . Sincerely, Bam Arambula MD 09/05/2020 9:16:54 AM This report has been signed electronically.
[2020-09-05 09:20] VITALS: BP 137/71; BP 91/64; PULSE 85; RESP 16; O2SAT 95
--- NOTE | 2020-09-05 09:20 | OP.CCLET_ITS ---
09/05/2020 Lainey Burton [address] [place] [address] Re : Colonoscopy procedure for Ericka Walls Dear Dr. Burton This procedure was performed on Saturday, September 05, 2020. My impressions and recommendations are as follows: Impressions : - Hemorrhoids found on perianal exam. - Patent end-to-side colo-rectal anastomosis, characterized by healthy appearing mucosa. 6cm from anal verge - Diverticulosis in the sigmoid colon. - Biopsies were taken with a cold forceps from the entire colon for evaluation of microscopic colitis. Recommendations : - Discharge patient to home. - Resume previous diet. - Continue present medications. - Telephone my office for pathology results in 1 week. - Repeat colonoscopy in 3 years for surveillance. My findings are described in the full procedure note, which is enclosed. If I can be of further assistance, please feel free to contact me at Doctor phone number(s): Work: . Sincerely, Bam Arambula MD 09/05/2020 9:20:22 AM This report has been signed electronically.
--- NOTE | 2020-09-05 09:20 | OP.COLON_ITS ---
Patient Name: Ericka Walls Procedure Date: 09/05/2020 8:57 AM Date of : 1945 Age: 75 Procedure: Colonoscopy Indications: High risk colon cancer surveillance: Personal history of colon cancer Providers: Bam Arambula MD Referring MD: Lainey Burton Medicines: See the Anesthesia note for documentation of the administered medications Patient Profile: Last Colonoscopy: 3 years ago. Complications: No immediate complications. Procedure: Pre-Anesthesia Assessment: - Prior to the procedure, a History and Physical was performed, and patient medications and allergies were reviewed. The patient's tolerance of previous anesthesia was also reviewed. The risks and benefits of the procedure and the sedation options and risks were discussed with the patient. All questions were answered, and informed consent was obtained. Prior Anticoagulants: The patient has taken no previous anticoagulant or antiplatelet agents. ASA Grade Assessment: II - A patient with mild systemic disease. After reviewing the risks and benefits, the patient was deemed in satisfactory condition to undergo the procedure. After I obtained informed consent, the scope was passed under direct vision. Throughout the procedure, the patient's blood pressure, pulse, and oxygen saturations were monitored continuously. The colonoscope was introduced through the anus and advanced to the cecum, identified by appendiceal orifice and ileocecal valve. The colonoscopy was performed without difficulty. The patient tolerated the procedure well. The quality of the bowel preparation was good. The ileocecal valve and the appendiceal orifice were photographed. Scope In: 8:59:11 AM Scope Withdrawal Time 0 hours 6 minutes 18 seconds Scope Out: 9:08:34 AM Total Procedure Duration Time 0 hours 9 minutes 23 seconds Findings: Hemorrhoids were found on perianal exam. There was evidence of a prior end-to-side colo-rectal anastomosis in the proximal rectum. This was patent and was characterized by healthy appearing mucosa. Scattered diverticula were found in the sigmoid colon. Biopsies for histology were taken with a cold forceps from the entire colon for evaluation of microscopic colitis. Impression: - Hemorrhoids found on perianal exam. - Patent end-to-side colo-rectal anastomosis, characterized by healthy appearing mucosa. 6cm from anal verge - Diverticulosis in the sigmoid colon. - Biopsies were taken with a cold forceps from the entire colon for evaluation of microscopic colitis. Recommendation: - Discharge patient to home. - Resume previous diet. - Continue present medications. - Telephone my office for pathology results in 1 week. - Repeat colonoscopy in 3 years for surveillance. Procedure Code(s): --- Professional --- 11739, Colonoscopy, flexible; with biopsy, single or multiple Diagnosis Code(s): --- Professional --- Z85.038, Personal history of other malignant neoplasm of large intestine K64.9, Unspecified hemorrhoids Z98.0, Intestinal bypass and anastomosis status K57.30, Diverticulosis of large intestine without perforation or abscess without bleeding CPT copyright 2017 [employer]. All rights reserved. The codes documented in this report are preliminary and upon information coder review may be revised to meet current compliance requirements. Bam Arambula MD 09/05/2020 9:20:22 AM This report has been signed electronically. Number of Addenda: 0 Note Initiated On: 09/05/2020 8:57 AM
[2020-09-05 09:25] VITALS: BP 110/67; BP 137/71; PULSE 83; RESP 16; O2SAT 95
[2020-09-05 09:30] VITALS: BP 109/61; BP 137/71; PULSE 80; RESP 16; O2SAT 95
[2020-09-05 10:26] VITALS: BP 126/59; BP 137/71; PULSE 61; RESP 18; TEMP 36.7; O2SAT 98
== END 2020-09-05 10:44 | disposition home or self-care (01) ==
LOC: EN 07:40 → AC 07:40
PROVIDERS: PCP Internal Medicine; Referring Provider Internal Medicine; Visit Provider Surgery
PROC: 0DJD8ZZ Inspection of Lower Intestinal Tract, Via Natural or Artificial Opening Endoscopic (ICD-10-PCS; CPT 45378; principal; 2020-09-05 08:40)
DX: K29.50 Unspecified chronic gastritis without bleeding (principal); K21.00 Gastro-esophageal reflux disease with esophagitis, without bleeding; K43.2 Incisional hernia without obstruction or gangrene; K57.30 Diverticulosis of large intestine without perforation or abscess without bleeding; K64.9 Unspecified hemorrhoids; K44.9 Diaphragmatic hernia without obstruction or gangrene; K31.7 Polyp of stomach and duodenum; E78.5 Hyperlipidemia, unspecified; Z93.2 Ileostomy status; Z85.038 Personal history of other malignant neoplasm of large intestine; Z20.828 Contact with and (suspected) exposure to other viral communicable diseases
CPT/HCPCS: 43239; 45380; 87426; 88305; 88342; C9803; J7120

== ENCOUNTER 2021-01-10 06:44 | Day surgery (SDC) | payer MEDICARE, OTHER, SELFPAY ==
[2021-01-02 13:20] VITALS: BMI 26.7
--- NOTE | 2021-01-05 10:02 | EKG12_ITS ---
Test Reason : PRE OP Blood Pressure : / mmHG Vent. Rate : 068 BPM Atrial Rate : 068 BPM P-R Int : 112 ms QRS Dur : 074 ms QT Int : 416 ms P-R-T Axes : 046 -03 036 degrees QTc Int : 442 ms Normal sinus rhythm Poor R wave progression Confirmed by ASHLEY MUSTAFA, HANNA ([id number]), publication editor LYNN MCKEE ([id number]) on 01/08/2021 10:08:03 AM Referred By: Bam Arambula Confirmed By:HANNA RAMIREZ MD
[2021-01-10] VITALS (8 sets, daily range): BP systolic 117–147; BP diastolic 59–90; PULSE 58–88; RESP 16; TEMP 35.7–37.2; O2SAT 94–100; BMI 27.9
[2021-01-10] MEDS: Lactated Ringers 1,000 ML 100 ML IV ×2 (07:48→11:37)
[2021-01-10] MEDS: Bupivacaine 0.25% 30 ML Vial (08:04)
--- NOTE | 2021-01-10 08:27 | HP.PCM_ITS ---
History and Physical Date of Admission: 01/10/21 Intake Visit Reasons: UPDATE H & P HERNIA Allergies oxaliplatin Allergy (Intermediate, Verified 01/02/21 13:18) nausea and vomiting clavulanic acid [From Augmentin] Allergy (Mild, Verified 01/02/21 13:18) iching iodine Allergy (Mild, Verified 01/02/21 13:18) Rash promethazine [From Phenergan] Allergy (Mild, Verified 01/02/21 13:18) Unknown codeine Allergy (Unknown, Verified 01/02/21 13:18) Unknown ondansetron [From Zofran (as hydrochloride)] Allergy (Unknown, Verified 01/02/21 13:18) Unknown Medications cholecalciferol (vitamin D3) 25 mcg (1,000 unit) tablet 5,000 unit PO DAILY tab 08/18/20 [History Confirmed 01/02/21] ibuprofen 200 mg tablet 200 mg PO Q4H PRN 08/18/20 [History Confirmed 01/02/21] multivitamin 1 cap PO DAILY 08/18/20 [History Confirmed 01/02/21] pantoprazole 20 mg tablet,delayed release 20 mg PO DAILY 08/18/20 [History Confirmed 01/02/21] <Domi Pitt - Last Filed: 01/02/21 14:16> Vital Signs 01/02/21 13:17 01/02/21 13:20 Height 5 ft 5 in Weight: 160 lb 3 oz BMI 26.6 26.7 BP 157/88 H Blood Pressure Location Rt brachial Position Sitting Respiration 18 Pulse 69 Pulse Source Monitor Temp 97.3 F L Temp Source Temporal Pulse Oximetry (%) 97 Oxygen Delivery Method room air Intake Chief Complaint: Possible ventral hernia Signal Intelligence Analyst Required: No Is patient in pain?: No PFSH <Maci BERNAL PA-C - Last Filed: 01/02/21 14:20> Medical History Change in bowel habit Chest pain Gallstones GERD (gastroesophageal reflux disease) History of colon cancer Hyperlipemia Incisional hernia Multinodular thyroid Recurrent ventral incisional hernia Surgical History History of appendectomy (~03/2019) History of cholecystectomy (~03/2019) History of colonoscopy (~01/2019) History of reversal of ileostomy (~03/2019) Port-A-Cath in place S/P ileostomy S/P tonsillectomy Family History Father Cancer Testicular cancer Brother Colon cancer Mother Heart disease Son Heart disease Social History Smoking Status: Never smoker second hand exposure: No alcohol intake: current alcohol intake frequency: holidays/special occasions only Alcohol type: wine substance use type: does not use seatbelt use: always <Domi Pitt - Last Filed: 01/02/21 14:16> HPI HPI: NOVA CARSON, is a 75 F who presents to the office today for HPI <Maci BERNAL PA-C - Last Filed: 01/02/21 14:20> HPI Surgical H&P: Yes HPI: Patient is a 75 y/o F I am following for ventral incisional hernia. She presents today for an update history and physical for this upcoming procedure. Patient denies recent hospitalizations or illnesses. She notes some nausea post- operative with anesthesia. She also notes IV Zofran gives her restless legs. She notes changes to her bowel habits since having this hernia. She did have a colonoscopy and EGD completed by Dr. Arambula on 09/05/20 which demonstrated the following: Impressions : - LA Grade A reflux esophagitis. Biopsied. - Medium-sized hiatal hernia. - Multiple gastric polyps. Resected and retrieved. - Chronic gastritis. Biopsied. - Normal examined duodenum. Impressions : - Hemorrhoids found on perianal exam. - Patent end-to-side colo-rectal anastomosis, characterized by healthy appearing mucosa. 6cm from anal verge - Diverticulosis in the sigmoid colon. - Biopsies were taken with a cold forceps from the entire colon for evaluation of microscopic colitis. Patient's previous history per Dr. Arambula: NOVA CARSON, is a 75 F who presents to the office today for surgical evaluation regarding what she suspects to be a ventral incisional hernia representing a recurrence from a previous parastomal hernia. She has additional concerns regarding stomach upset. She has gurgling and abdominal cramping after eating. She will have bowel movements sporadically sometimes with small output and sometimes with voluminous output. July 2017 she had a distal sigmoid stent placed because of colonic obstruction from malignancy. At [facility] she then had an open low anterior resection with stapled anastomosis and loop ileostomy. That was complicated by wound infection. She had stage III disease [id number]. She had ongoing oncology treatment with Dr. Rajendra Shaver. I then assisted her March 08, 2019 with a takedown of her ileostomy with a primary ileal ileal anastomosis and repair of a parastomal incisional hernia combined with a laparoscopic cholecystectomy and laparoscopic appendectomy and a bilateral tap block. As of July 03, 2020 her CEA level was 1.8. Her liver function tests have remained normal. She is not anemic. On December 28, 2019 at the [facility] she had a CT scan of the abdomen. She had adverse reaction to the contrast dye. There is no evidence of metastatic disease. There is no comment that at that time that she has a ventral incisional hernia but actually that CT demonstrates a ventral incisional hernia in the right upper quadrant related to her parastomal hernia repair breakdown and she also has a separate small umbilical hernia. Because of her contrast dye reaction she had additional follow-up on July 03, 2020 at the [facility] with an MRI of the abdomen. No metastatic disease was identified in the abdomen. That study also does not mention abdominal wall findings. The patient states that she is able to palpate a reducible mass in the right upper quadrant. She states that it is intermittently tender. She is not sure whether this correlates with her GI symptoms. Her symptoms are somewhat vague being epigastric mean abdomen and discomfort and inability to eat large meals having to eat smaller amounts with subsequent gas and and cramping. As noted she has erratic bowel movement with sometimes no movement of her bowels for 3 or 4 days sometimes small amounts of stools and sometimes explosive amounts of stool. She has not noticed any bright red blood per rectum or melena. She states that she noticed this hernia after a large sneeze several months ago. She correlates her change in abdominal comfort and bowel habits about at the same time. <Domi Pitt - Last Filed: 01/02/21 14:16> HPI HPI: NOVA CARSON, is a 75 F who presents to the office today for <Domi Pitt - Last Filed: 01/02/21 14:16> General General: Yes fatigue; No weight change, appetite, colon cancer or breast cancer HEENT HEENT: No difficulty swallowing, eye injury, eye surgery, swollen glands or hoarseness Endo Endocrine: No thyroid disease, diabetes mellitus, thyroid cancer, Hair loss, heat intolerance or cold intolerance Skin Skin: No rash or changing moles Breast Breast: Yes nipple discharge; No left breast lump, right breast lump, breast pain, abnormal mammogram, abnormal US or breast enlargement Musc Musculoskeletal: Yes back problems and arthritis; No rheumatoid arthritis, gout or joint pain Cardio Cardiovascular: No murmur, pacemaker, heart disease, atrial fibrillation, high blood pressure, heart attack, heart stent, palpitations, shortness of breat with exertion or chest pain Psych Psychiatric: No depression, anxiety or hearing voices Resp Respiratory: No shortness of breath, No sleep apnea, No cough, No COPD, No asthma, No emphysema and No wheezing Gastro Gastrointestinal: Yes abdominal pain, Yes nausea or vomiting, No diarrhea, No constipation, No blood in stool, Yes acid reflux, No hemorrhoids, No ulcers, No gallbladder problem and No black,tarry stools Royce Hematologic: No blood thinners, No blood disorders, No bleeding, No anemia and No blood clots Exam <Maci BERNAL PA-C - Last Filed: 01/02/21 14:20> Const General: cooperative, healthy appearing, comfortable and no acute distress HENMT Head: normal to inspection Eyes General: appearance normal, both eyes and all related structures Neck Neck: normal visual inspection Resp Effort & Inspection: normal respiratory effort Cardio Rate: regular rate Rhythm: regular rhythm GI Inspection: normal to inspection Palpation: soft and hernia (transverse incision RUQ with palpable central defect, reducible) Auscultation: normal bowel sounds Skin General: no rashes or lesions noted Neuro General: no focal motor deficits and CN's II-XI intact bilaterally Extrem General: normal to inspection Psych Appearance: grossly normal Affect: normal affect <Domi Pitt - Last Filed: 01/02/21 14:16> Chest Breast Palpation: Yes nipple discharge Cardio Heart Sounds: no murmurs COVID (Procedure Consent) <Maci BERNAL PA-C - Last Filed: 01/02/21 14:20> Procedure Criteria Procedure Criteria: Yes Elective The surgeon/proceduralist and patient have discussed in detail the risk of exposure to and/or potential harm posed by the COVID-19 virus with having a surgery/procedure at this time versus the risk of delaying the surgery/procedure. It is not possible to know either the risk of delaying the surgery or procedure or chance of getting an infection with perfect accuracy, but a joint decision was made between the patient and the surgeon/proceduralist to proceed at this time with the scheduled surgery/procedure as indicated on the consent form. Assessment and Plan <Maci BERNAL PA-C - Last Filed: 01/02/21 14:20> Assessment and Plan (1) Recurrent ventral incisional hernia: Status: Acute Plan: Dr. Arambula will plan to perform a right upper quadrant recurrent ventral incisional hernia repair with potential conversion to laparoscopic repair with Ventralex mesh. Procedure details, risks and benefits have been reviewed. Patient and her daughter have had the opportunity to ask and have questions answered. Patient verbally understands and agrees with the plan. <Domi Pitt - Last Filed: 01/02/21 14:16> Assessment and Plan (1) Recurrent ventral incisional hernia: (2) Incisional hernia: Coding Level of Care Code No Charge Diagnoses Recurrent ventral incisional hernia K43.2 Incisional hernia K43.2 I have re-examined the patient. There are no clinical changes since date of exam.
[2021-01-10] MEDS: Cefazolin 2 GM in 0.9% Normal Saline 100 ML IV (08:39)
--- NOTE | 2021-01-10 08:44 | PCM.DC ---
Discharge Instructions Outpatient Procedure Reason For Visit: LAP RECURRENT INGUINAL HERNIA Procedure: General Surgery Diet Discharge Diet: Light diet - advance as tolerated (if you have questions about your diet instructions, please talk to you doctor.) Activity Discharge Activity: May Not Drive (for 3-5 days or while taking narcotic pain medicine.) May shower in (days): 1 Lifting Restrictions: 10 pounds Dressing / Incision Call your doctor if your incision/area has: Continuous Slow Oozing, Sudden Increased Bleeding, Increased Pain/ Swelling, Increased Redness and Foul Smelling Discharge Call your doctor if you observe: Fever of 101 or Higher Suture Line Care: Avoid Pulling/Pushing and Avoid Pinching/Bending Additional Dressing/Incision Instructions:: Change or remove dressing in 4 days. Leave steri-strips in place for 1 week. Follow Up Care Please Follow Up With: Bam Arambula MD When: Call [phone] to make an appointment to be seen in about 10 days. Test Results: Test results from this visit will be discussed in further detail at your follow-up appointment, if applicable. Discharge Plan Admission Attending Provider: Bam Arambula Primary Care Provider: Lainey Burton Discharge Orders/Prescriptions Prescriptions: No Action multivitamin capsule 2 cap PO DAILY RF: 0 [place] 3 Natural Fish Oil Conc Capsule 2,000 mg PO DAILY RF: 0 calcium citrate-vitamin D3 [Calcitrate-Vitamin D] 315 mg-6.25 mcg (250 unit) Tablet 3 tab PO DAILY RF: 0 acetaminophen [Tylenol Extra Strength] 500 mg Tablet 500 - 1,000 mg PO Q6H PRN (Reason: PAIN OR FEVER) RF: 0 omeprazole 20 mg capsule,delayed release(DR/EC) 20 mg PO DAILY RF: 0
--- NOTE | 2021-01-10 09:00 | HERN_PTH ---
PATIENT: NOVA CARSON LOC: [facility] [place][id number] AGE/SX: 75/F ROOM: RE01/10/[address]: Dr. Bam Arambula MD : 1945 BED: DIS: 01/10/2021 SPEC #: [id number] RECD: 01/10/21 10:19 STATUS: CHRISTIAN HORAN #: [id number] DL: 01/10/21 09:[address]: Bam Arambula DEPT: SURGICAL PATHOLOGY RECD BY: Anne Crespo ENTERED: 01/10/21 11:35 SP TYPE: Hernia OTHR DR: Dr. Lainey Burton MD Tissues: HERNIA Procedures: Surgery Specimen Level II HEADER OPERATION: Upper quadrant recurrent ventral incisional hernia repair PRE-OP DIAGNOSIS: Recurrent ventral incisional hernia TISSUE SUBMITTED: Hernia sac MICROSCOPIC DIAGNOSIS Hernia sac: Pieces of fibroadipose and fibroconnective tissue, consistent with hernia sac. SJ:daysi 01/11/2021 MICROSCOPIC DESCRIPTION Slides are reviewed. GROSS DESCRIPTION Received in fixative is one container labeled with the patient's name and designated hernia sac. The specimen consists of two pieces of soft tissue measuring 9 x 4 x 2 cm and 1.5 x 1 x 0.5 cm. No mass lesion is identified. French Comber sections are submitted in one cassette. / DHRUV:daysi 01/10/21 TC:5 CPT: 22800
--- NOTE | 2021-01-10 09:45 | PCM.OPRPT ---
Problems Associated Problem List Diagnoses (1) Recurrent ventral incisional hernia: Report of Operation Date of Procedure: 01/10/21 Pre-Operative Diagnosis: Recurrent right upper quadrant ventral incisional hernia Post-Operative Diagnosis: Same Surgery/Procedure Performed:: Recurrent right upper quadrant ventral incisional herniorrhaphy with 6.[address] hernia patch, ref.[id number], Lot: [id number], Expiry date 06/06/22 and a separate piece of mesh Ventralex ST 8 cm diameter reference #[id number],Lot: [id number], Expiry date 07/05/22 Description of Surgical Findings:: Timeout and informed consent was obtained. 75-year-old female was taken to the operating placement table underwent general endotracheal intubation esthesia. The abdomen sterilely prepped and draped. A clear band draping was applied. Ancef 2 g were given intravenously. The previous skin scar in the right upper quadrant at the previous site of the parastomal hernia and diverting ileostomy was transversely elliptically excised. The skin scar was inspected and discarded. Sharp dissection carried down through the subcutaneous tissue. Incision had to be lengthened some because became apparent that they were 2 fascial defects. One was more medially placed and slightly inferior and the more dominant one was more laterally placed. I was able to open the hernia sac there was small bowel underneath the smaller hernia sac easily completely excised. The larger sac required more electrocautery dissection to completely remove the sac. There were therefore 2 defects one measuring about 2 cm in diameter medially and the other one approximately 4-1/2 cm in diameter laterally. I elected to place a 6.4 cm Ventralex mesh at the medial 1. I secured the tails with interrupted 0 Nurolon and I closed the fascia with simple sutures of 0 Nurolon taking care to use small bites to incorporate the anterior surface of the mesh. Having done that I placed the 8 cm mesh in the lateral 1. That overlapped to a small degree the 6.4 cm mesh and so I used a 0 Nurolon to secure the 8 center mesh to the fascia and to the other piece of mesh into the abdominal wall on one suture. Very nice approximation was achieved. Having secured both tails I then in a simple fashion closed the fascial defect with simple sutures of 0 Nurolon catching the anterior surface of the Ventralex mesh. A very nice closure was achieved. The fascia around the repair was anesthetized with 30 cc of 0.25% Marcaine and fascial type block. The subcutaneous tissues approximated with several interrupted 3-0 Vicryl sutures. The skin edges approximated with a running septic or 4 Monocryl. The surrounding subtenons tissues were anesthetized with 30 cc of 0.25% Marcaine. Patient tolerated procedure well. Steri-Strips Telfa OpSite dressings applied. Sponge and instrument and needle counts were reported the surgeon to be correct. Specimen includes hernia sac. Drains none. Blood loss minimal. An abdominal binder was placed and the patient was taken to the recovery area in satisfactory condition without apparent complication Bam Arambula M.D., F.A.C.S. Type of Anesthesia: General Anesthesiologist: Chuckie Ross
[2021-01-10] MEDS: Acetaminophen 325 MG Tablet 650 MG PO (11:30)
[2021-01-10] MEDS: Ketorolac 15 MG/ML Vial IV (11:43)
--- NOTE | 2021-01-10 11:43 | EX.PCM.DISCH ---
Discharge Instructions Outpatient Procedure Reason For Visit: LAP RECURRENT INGUINAL HERNIA Diet Discharge Diet: Light diet - advance as tolerated (if you have questions about your diet instructions, please talk to you doctor.) Activity Discharge Activity: May Not Drive (for 3-5 days or while taking narcotic pain medicine.) May shower in (days): 1 Dressing / Incision Call your doctor if your incision/area has: Continuous Slow Oozing, Sudden Increased Bleeding, Increased Pain/ Swelling, Increased Redness and Foul Smelling Discharge Call your doctor if you observe: Fever of 101 or Higher Suture Line Care: Avoid Pulling/Pushing and Avoid Pinching/Bending Additional Dressing/Incision Instructions:: Change or remove dressing in 4 days. Leave steri-strips in place for 1 week. Follow Up Care Please Follow Up With: Bam Arambula MD Test Results: Test results from this visit will be discussed in further detail at your follow-up appointment, if applicable. Discharge Plan Admission Primary Reason for Your Visit: Right upper quadrant recurrent ventral incisional hernia Attending Provider: Bam Arambula Primary Care Provider: Lainey Burton Discharge Orders/Prescriptions Prescriptions: No Action multivitamin capsule 2 cap PO DAILY RF: 0 [place] 3 Natural Fish Oil Conc Capsule 2,000 mg PO DAILY RF: 0 calcium citrate-vitamin D3 [Calcitrate-Vitamin D] 315 mg-6.25 mcg (250 unit) Tablet 3 tab PO DAILY RF: 0 acetaminophen [Tylenol Extra Strength] 500 mg Tablet 500 - 1,000 mg PO Q6H PRN (Reason: PAIN OR FEVER) RF: 0 omeprazole 20 mg capsule,delayed release(DR/EC) 20 mg PO DAILY RF: 0 Referrals: Lainey Burton MD [Primary Care Provider] - Disposition Disposition (needs filled in before D/C Order can be placed): Home, self care
--- NOTE | 2021-01-10 12:15 | SUR.PHASEII ---
AT APPROXIMATELY 1140, DR Ela SUMMERS CAME TO THE BEDSIDE AND SPOKE EXTENSIVELY TO THE PATIENT AND HER DAUGHTER.
== END 2021-01-10 14:45 | disposition home or self-care (01) ==
LOC: SDC 06:44 → AC 06:44
PROVIDERS: PCP Internal Medicine; Referring Provider Surgery; Visit Provider Surgery
PROC: 0WQF4ZZ Repair Abdominal Wall, Percutaneous Endoscopic Approach (ICD-10-PCS; CPT 49565; principal; 2021-01-10 08:40)
DX: K43.2 Incisional hernia without obstruction or gangrene (principal); K21.9 Gastro-esophageal reflux disease without esophagitis; E78.5 Hyperlipidemia, unspecified
CPT/HCPCS: 00752; 49565; 49568; 88302; 93005; C1781; J7120; A4216; J2405; J3490

== ENCOUNTER → 2021-04-04 11:46 | Outpatient (CLI) | payer SELFPAY ==
[2021-01-10 07:25] VITALS: BMI 27.9
--- NOTE | 2021-04-04 11:52 | CT_ITS ---
STUDY: CT CHEST WITHOUT CONTRAST REASON FOR EXAM: Female, 75 years old. RISK FOR CAD. Cardiac over read examination. RADIATION DOSAGE (If Supplied By Facility): CTDIvol = ( 12.19 ) mGy, DLP = ( 243.79 ) mGycm TECHNIQUE: Transaxial imaging was performed without the administration of intravenous contrast material. Individualized dose optimization techniques were used for this CT. COMPARISON: None. FINDINGS: The lungs are normal. There is no demonstrated pleural abnormality. There are calcifications of the coronary arteries. There are multiple small lymph nodes within the mediastinum, which are normal in size and morphology most compatible with reactive lymph hyperplasia. Normal hilar regions. Normal unenhanced pulmonary arteries. There is atherosclerotic calcification of the aortic arch with tortuosity and elongation of the aortic arch and descending thoracic aorta. Normal osseous structures. Moderate sized hiatal hernia. CT/Limited Chest CT w/CCTA IMPRESSION: No acute abnormalities Electronically Signed: Quinton Barrios MD at 14:59 EDT , Service support ,
[2021-04-04 11:55] VITALS: BP 143/64; PULSE 65; RESP 12; TEMP 36.8; O2SAT 100; BMI 27.9
--- NOTE | 2021-04-04 20:13 | CA.SCORE ---
Calcium Scoring Date of Study:: 04/04/21 Coronary Calcium Scoring: High-resolution Computed Tomographic imaging of the chest was performed on 04/04/2021 with particular attention paid to the coronary arteries. Images from the examination were analyzed for the presence and extent of coronary artery calcification , using coronary calcium quantification software. The patient tolerated the procedure well and there were no complications. The results of the coronary calcification analysis are provided below. Findings Coronary Artery Left Main (LM): 0 Left Anterior Descending (LAD): 0 Left Circumflex (LCX): 0.79 Right Coronary Artery (RCA): 0 Total Agatston Score: 0.79 Percentile Ranking: Based upon prepublished reference tables less than 10% of patients of the same gender/similar age had the same/lower scores Calcium Scoring Interpretation: 0 No identifiable atherosclerotic plaque. Very low cardiovascular disease risk. <5% chance of presence coronary artery disease A Negative Examination 1-10 Minimal Plaque burden. Significant coronary artery disease very unlikely. 11-100 Mild plaque burden. Likely mild or minimal coronary atherosclerosis. 101-400 Moderate plaque burden Moderate non-obstructive coronary artery disease highly likely. Over 400 Extensive plaque burden. High likelihood of at least one significant coronary stenosis (>50% diameter) Calcium Score: 1 -10 Significant coronary artery disease very unlikely Conclusion: Continue cardiovascular risk factor evaluation and care as deemed appropriate.
== END ==
PROVIDERS: PCP Internal Medicine; Referring Provider Internal Medicine; Visit Provider Internal Medicine
DX: Z91.89 Other specified personal risk factors, not elsewhere classified (principal); Z13.6 Encounter for screening for cardiovascular disorders
CPT/HCPCS: 75571; 76380

== ENCOUNTER 2021-08-19 18:28 | Emergency (ER) | payer MEDICARE, OTHER, SELFPAY ==
[2021-08-19 18:29] VITALS: BP 169/95; PULSE 97; RESP 18; TEMP 36; O2SAT 98; BMI 28.3
--- NOTE | 2021-08-19 18:31 | EKG12_ITS ---
Test Reason : PALPS Blood Pressure : / mmHG Vent. Rate : 086 BPM Atrial Rate : 086 BPM P-R Int : 136 ms QRS Dur : 078 ms QT Int : 360 ms P-R-T Axes : 037 -13 027 degrees QTc Int : 430 ms Sinus rhythm with Premature supraventricular complexes Otherwise normal ECG Confirmed by ASHLEY MUSTAFA, HANNA ([id number]), acquisitions editor LYNN MCKEE ([id number]) on 08/22/2021 11:10:05 AM Referred By: Confirmed By:HANNA RAMIREZ MD
--- NOTE | 2021-08-19 18:31 | RAD_ITS ---
STUDY: X-RAY CHEST REASON FOR EXAM: Female, 76 years old. chest pain palpitations dizziness full feeling in throat TECHNIQUE: Frontal portable view of the chest COMPARISON: 24 November 2017 FINDINGS: Infusion port is present in the right upper chest entering the jugular and terminating in the lower SVC. The lungs are clear and expanded. There is no demonstrated pleural abnormality. Normal size heart. Normal mediastinum and shantell. Normal visualized pulmonary arteries. Normal visualized aortic arch and descending thoracic aorta. Normal visualized thoracic spine. Normal visualized ribs, clavicles, and shoulders. There is no demonstrated abnormality of the visualized soft tissue structures of the upper abdomen. RAD/Chest 1 View (Portable) IMPRESSION: Normal x-ray examination of the chest. Electronically Signed: Kieran Garcia MD at 19:56 EST Tel , Service support ,
[2021-08-19 19:18] LABS: Absolute Lymphocyte Count 1.95 X10^3/uL (0.83-4.51); Absolute Neutrophil Count 3.6 X10^3/uL (2.0-7.7); Basophil# 0.05 X10^3/uL; Basophil% 0.8 % (0-1); Eosinophil# 0.11 X10^3/uL; Eosinophils% 1.8 % (0-5); Hematocrit 39.2 % (37-47); Hemoglobin 12.5 g/dL (12.0-15.0); Lymphocyte # 1.95 X10^3/ul (0.83-4.51); Lymphocyte % 31.8 % (19-41); Mean Corp Hgb Conc 31.9 g/dL (32-36); Mean Corpuscular Hgb 28.7 pg (27.0-32.0); Mean Corpuscular Volume 89.9 fL (81-99); Mean Platelet Vol. 10.8 fl (6.2-12.0); Monocyte# 0.44 X10^3/uL; Monocyte% 7.2 % (0-10); NRBC Flagged by Analyzer 0 % (0-5); Neutrophil # 3.58 X10^3/uL (2.7-7.7); Neutrophil % 58.2 % (47-70); Platelet Count 258 K/mm3 (150-450); RBC Distribution Width CV 12.7 % (11.6-14.6); RBC Distribution Width SD 42.2 fl (35.1-43.9); Red Blood Count 4.36 M/mm3 (4.2-5.4); White Blood Count 6.1 K/mm3 (4.4-11.0)
--- NOTE | 2021-08-19 19:25 | EX.ED.DYSGE1 ---
HPI History of Present Illness Chief Complaint: Palpitations Detail of Chief Complaint: Palpitations, jaw pain and elevated blood pressure Informant: patient Onset/Context/Timing Onset: Hours (Onset 1400) Context: Sudden Onset Timing: Continuous (The palpitations and bilateral jaw tightness has been constant since onset) Quality: Tightness Location: Jaw bilateral Current Severity: Mild Maximum Severity: Moderate Worsened by: Nothing Relieved by: Nothing Associated Symptoms Associated Symptoms: Nothing other than palpitations Narrative Narrative: Patient is a 76-year-old woman with history of hyperlipidemia, GERD, colon cancer who presents with erratic blood pressure . She also complains of palpitation and bilateral jaw tightness. She denies history of coronary disease. She denies history of congestive heart failure. She denies history of atrial fibrillation or tachydysrhythmia. She denies fever, chills night sweats. Denies headache. Denies visual, ocular auditory symptoms. She denies change in voice or difficulty swallowing. She denied chest discomfort. She denied shortness of breath. She denied nausea, vomiting or diarrhea. She denied diaphoresis. She does have remote history of VTE. She did have problems with her heart due to chemo to treat her colon cancer 2 years ago. Prior similar symptoms: No Recent Illness/Hospitalization: No PFSH PFS Medical History Back pain Cancer Change in bowel habit Chest pain DVT (deep venous thrombosis) Gallstones GERD (gastroesophageal reflux disease) Hiatal hernia History of colon cancer Hx of cardiovascular stress test Hyperlipemia Incisional hernia Multinodular thyroid Non-smoker Post-menopausal Pre-op testing Recurrent ventral incisional hernia Wears glasses Home Medications multivitamin 2 cap PO DAILY 08/18/20 [History Last Taken 01/09/21] calcium citrate-vitamin D3 [Calcitrate-Vitamin D] 3 tab PO DAILY 01/03/21 [History Last Taken 01/09/21] omeprazole 20 mg PO DAILY 01/10/21 [History Last Taken 01/10/21 04:00] Lactobacillus acidophilus [Acidophilus] 0 mg PO DAILY 08/19/21 [History Last Taken Unknown] Allergy/AdvReac Type Severity Reaction Status Date / Time oxaliplatin Allergy Intermediate nausea and Verified 08/19/21 18:28 vomiting clavulanic acid Allergy Mild FACE Verified 08/19/21 18:28 [From Augmentin] SWELLING, BRIGHT RED iodine Allergy Mild Rash Verified 08/19/21 18:28 promethazine [From Phenergan] Allergy Mild CANNOT Verified 08/19/21 18:28 RECALL codeine Allergy Unknown INSOMNIA, Verified 08/19/21 18:28 RESTLESSNESS ondansetron Allergy Unknown SEVERE Verified 08/19/21 18:28 [From Zofran (as RESTLESS hydrochloride)] LEG IV ZOFRAN, CAN TOLERATE PO Family History Father Cancer Testicular cancer Brother Colon cancer Mother Heart disease Son Heart disease Surgical History History of appendectomy (~03/2019) History of cholecystectomy (~03/2019) History of colonoscopy (~01/2019) History of incisional hernia repair History of reversal of ileostomy (~03/2019) Port-A-Cath in place S/P ileostomy S/P tonsillectomy Social History (Updated 08/19/21 @ 19:[address] Cyrus Chatterjee MD) household members: none Smoking Status: Never smoker second hand exposure: No alcohol intake: current alcohol intake frequency: holidays/special occasions only Alcohol type: wine substance use type: does not use seatbelt use: always ROS ROS ED Constitutional Constitutional ED: Denies chills, fever(s), subjective or sweats Eyes Eyes: Denies blurry vision, change in vision or diplopia ENT ENT ED: Reports other Details: Bilateral jaw pain ; Denies ear pain, rhinorrhea or sore throat Cardiovascular Cardiovascular: Reports palpitations; Denies chest pain, orthopnea, paroxysmal nocturnal dyspnea or racing heartbeat Respiratory/Chest Respiratory/Chest: Denies cough, dyspnea, dyspnea on exertion, orthopnea, paroxysmal nocturnal dyspnea or sputum Gastrointestinal Gastrointestinal: Denies abdominal pain, diarrhea, melena, nausea or vomiting Genitourinary Genitourinary ED: Denies dysuria, hematuria or urinary frequency Musculoskeletal Musculoskeletal: Denies arthralgias, back pain, myalgias or neck pain Integumentary Denies abscess or rash Neurologic Neurologic: Denies headache(s) or weakness Endocrine Endocrinology: Denies polydipsia, polyphagia or polyuria EXAM Physical Exam Const Vital Signs: 08/19/21 18:29 08/19/21 19:37 08/19/21 21:20 Temperature 96.8 F L Temperature Source Temporal Pulse Rate 97 81 80 Respiratory Rate 18 20 H 16 Respiratory Effort Normal Non-Labored Blood Pressure 169/95 H 159/81 H 150/70 H Blood Pressure Mean 119 107 96 Pulse Ox 98 96 98 Oxygen Delivery Method Room Air Room Air Room Air Positive well nourished, well developed and obese General Appearance ED: well developed and NAD; Negative for cyanotic, diaphoretic or pallor Nutritional Appearance: obese HEENT Reports TM's clear and moist mucous membranes HEENT Narrative: Uvula midline. There is no erythema or exudate. Negative for trauma or tenderness Tympanic Membrane ED: Yes TM's clear Eyes PERRL and EOMs intact bilaterally General Eye ED: Negative for pale conjunctiva or scleral icterus Neck no lymphadenopathy, supple and no JVD Chest Wall inspection of chest normal and palpation of chest normal Resp normal respiratory effort and clear to auscultation bilaterally Cardio regular rate, S1 normal heart sound, S2 normal heart sound and no murmurs Rate: other Other Details: Patient has frequent premature atrial beats noted on the monitor. GI normal to inspection, nondistended, normoactive bowel sounds, non-tender and non-distended Palpation: soft Neuro oriented x3, CN's II-XII intact bilaterally and no sensory deficits noted Sensorium / Orientation: alert Motor Exam: strength 5/5 throughout Psych mental status grossly normal Skin no rashes or lesions noted, no wounds and skin turgor normal General Skin Exam: Negative for jaundice or pallor MDM MDM MDM Narrative Medical decision making narrative: With bilateral jaw pain need to rule out atypical presentation for cardiac disease. The palpitations are in all likelihood the premature atrial beats. Patient was informed her blood pressure readings are elevated however in light of her age and her being asymptomatic other than the palpitations the blood pressure readings are no significant certain. The highest level documented was 165 systolic. Lab Data Attestation: I reviewed the patient's lab results. Lab results narrative: Because the first troponin is 13 will obtain a 2-hour troponin. Delta is 0. Patient be discharged home. The patient and daughter were informed of results. Labs: Laboratory Results - last 24 hr 08/19/21 08/19/21 08/19/21 18:55 18:55 21:15 WBC 6.1 RBC 4.36 Hgb 12.5 Hct 39.2 MCV 89.9 MCH 28.7 MCHC 31.9 L RDW Std Deviation 42.2 RDW Coeff of Onur 12.7 Plt Count 258 MPV 10.8 Immature Gran % (Auto) 0.200 Neut % (Auto) 58.2 Lymph % (Auto) 31.8 [place] % (Auto) 7.2 Eos % (Auto) 1.8 Baso % (Auto) 0.8 Absolute Neuts (auto) 3.6 Absolute Lymphs (auto) 1.95 Nucleated RBC % 0 Sodium 142 Potassium 4.0 Chloride 110 H Carbon Dioxide 26.0 Anion Gap 6 BUN 18 Creatinine 1.15 H Estim Creat Clear Calc 38.62 Est GFR (MDRD) Af Amer 59 L Est GFR (MDRD) Non-Af 49 L BUN/Creatinine Ratio 15.7 Glucose 109 H Calcium 9.4 Troponin I High Sens 13 13 Radiography Chest X-Ray - ED: 1 View (Single view chest x-ray reveals normal cardiac silhouette and size. Infusion port noted right subclavian. Perihilar regions normal. Chronic changes in the lung hill. Osseous structures are unremarkable.) Diagnostic Testing: Clinical Impression(s) from Imaging Studies Chest X-Ray 08/19/21 18:31 IMPRESSION: Normal x-ray examination of the chest. Electronically Signed: Kieran Garcia MD at 19:56 EST Tel , Service support , EKG Initial EKG: Attestation: I personally reviewed and interpreted this EKG as follows: Interpretation: Sinus Rhythm (Sinus rhythm with a ventricular rate of 86. There are premature supraventricular beats noted. OR interval is 136 ms. QRS duration 78 ms. QT durations 360 ms. Hamilton is normal. The EKG is normal other than the premature beats.) Discharge Plan Triage Chief Complaint: Palpitations Other Complaint: Chest Pain ED Provider: Cyrus Chatterjee Dx/Rx/DC Orders Clinical Impression: Atrial premature beats, Jaw pain Instructions: ED About Arrhythmias Prescriptions: No Action multivitamin capsule 2 cap PO DAILY RF: 0 calcium citrate-vitamin D3 [Calcitrate-Vitamin D] 315 mg-6.25 mcg (250 unit) Tablet 3 tab PO DAILY RF: 0 omeprazole 20 mg capsule,delayed release(DR/EC) 20 mg PO DAILY RF: 0 Acidophilus Capsule 0 mg PO DAILY RF: 0 Primary Care Provider: Lainey Burton Referrals: Lainey Burton MD [Primary Care Provider] - 3-5 Days if not improving Disposition Disposition: Home, Self Care
[2021-08-19 19:36] LABS: Anion Gap 6 (5-15); BUN 18 mg/dL (7-18); BUN/Creat Ratio 15.7 RATIO (10-20); Calcium,Total 9.4 mg/dL (8.5-10.1); Chloride 110 mmol/L (98-107); Creatinine, Serum 1.15 mg/dL (0.55-1.02); EST Glomerular Filtration Rate 49 mL/min (>60); Est Glom Filt Rate - Afr Amer 59 mL/min (>60); Estimated Creatinine Clearance 38.62 ml/min; Glucose 109 mg/dL (74-106); Sodium Level 142 mmol/L (136-145); Troponin-I HS 13 pg/mL (3.0-54.0)
[2021-08-19 19:37] VITALS: BP 159/81; PULSE 81; RESP 20; O2SAT 96; O2SAT 97
[2021-08-19 21:20] VITALS: BP 150/70; PULSE 80; RESP 16; O2SAT 98
[2021-08-19 21:42] LABS: Troponin-I HS 13 pg/mL (3.0-54.0)
[2021-08-19 22:25] VITALS: BP 152/75; PULSE 66; RESP 14; O2SAT 98
[2021-08-19] MEDS: 0.9% Saline Lock 10 ML Syringe IV (22:31)
== END 2021-08-19 22:36 | disposition home or self-care (01) ==
PROVIDERS: Emergency Provider Emergency Medicine; PCP Internal Medicine
DX: I49.1 Atrial premature depolarization (principal); R68.84 Jaw pain; R07.9 Chest pain, unspecified; E04.2 Nontoxic multinodular goiter; E78.5 Hyperlipidemia, unspecified; K44.9 Diaphragmatic hernia without obstruction or gangrene; K21.9 Gastro-esophageal reflux disease without esophagitis; Z86.718 Personal history of other venous thrombosis and embolism; Z85.038 Personal history of other malignant neoplasm of large intestine; Z79.899 Other long term (current) drug therapy; Z78.0 Asymptomatic menopausal state
CPT/HCPCS: 36591; 71045; 80048; 84484; 85025; 93005; 99285; A4216

== ENCOUNTER 2021-10-29 09:29 | Outpatient (CLI) | payer MEDICARE, OTHER, SELFPAY | END 2021-10-29 23:59 | disposition home or self-care (01) | PROVIDERS: PCP Internal Medicine; Referring Provider Internal Medicine Cardiovascular Disease; Visit Provider Internal Medicine Cardiovascular Disease | DX: R42 Dizziness and giddiness (principal) | CPT/HCPCS: 93225; 93226 ==

== ENCOUNTER → 2022-01-01 | Outpatient (CLI) | payer MEDICARE, OTHER, SELFPAY ==
--- NOTE | 2022-01-01 09:51 | ART_ITS ---
Reason For Study: claudication Procedure A bilateral lower extremity continuous wave Doppler with analog waveform analysis,segmental pressures,and ankle brachial indexes without exercise. Left Segmental Pressures Left brachial= 139mmHg. Left posterior tibial artery = 195mmHg. Left dorsalis pedis artery = 183mmHg. The left dorsalis pedis waveforms are triphasic. The left posterior tibial artery waveforms are triphasic. Right Segmental Pressures Right brachial= 136mmHg. Right posterior tibial artery = 172mmHg. Right dorsalis pedis artery = 177mmHg. The right dorsalis pedis waveforms are triphasic. The right posterior tibial artery waveforms are triphasic. Indices The right ankle brachial index by the dorsalis pedis is 1.27. The right ankle brachial index by the posterior tibial artery is 1.24. The left ankle brachial index by the posterior tibial artery is 1.4. The left ankle brachial index by the dorsalis pedis is 1.32. VL/Lower Ext Art Exam w/o Exercis Interpretation Summary Normal right DP and PT ankle-brachial index of 1.27 and 1.24 respectively with normal triphasic Doppler waveforms Normal left PT and DP ankle-brachial index of 1.4 and 1.3 to with normal tripha sic Doppler waveforms Ordering Physician: Trena Brandon Performed By: Kevin Iqbal RVT
--- NOTE | 2022-01-01 09:51 | CDU_ITS ---
Reason For Study: dizziness Rt. Velocities/BP Lt. Velocities/BP Prox CCA 99.5/23.9 cm/sec. Prox CCA 78.6/14.7 cm/sec. Mid CCA 85.2/23.9 cm/sec. Mid CCA 87.7/23.9 cm/sec. Dist CCA 78.6/23.9 cm/sec. Dist CCA 82.5/23.9 cm/sec. Prox ICA 63.0/16.0 cm/sec. Prox ICA 57.8/14.7 cm/sec. Mid ICA 60.4/25.2 cm/sec. Mid ICA 81.2/27.8 cm/sec. Dist ICA 104.7/31.7 cm/sec. Dist ICA 89.0/21.2 cm/sec. Rt. ICA/CCA = 1.2. Lt. ICA/CCA = 1.0. Prox ECA 103.4/12.1 cm/sec. Prox ECA 79.9/10.8 cm/sec. Rt. Vert. 63.0/20.0 cm/sec. Lt. Vert. 39.0/11.6 cm/sec. Right Extracranial There is intimal thickening but no significant atherosclerotic plaque noted in the right common carotid artery. There is heterogeneous, irregular atherosclerotic plaque noted in the right internal carotid artery. There is heterogeneous, irregular atherosclerotic plaque noted in the right external carotid artery. Antegrade flow is noted in the right vertebral artery. Left Extracranial There is intimal thickening but no significant atherosclerotic plaque noted in the left common carotid artery. There is heterogeneous, irregular atherosclerotic plaque noted in the left internal carotid artery. There is intimal thickening but no significant atherosclerotic plaque noted in the left external carotid artery. Antegrade flow is noted in the left vertebral artery. Procedure Carotid Duplex 52526. This is a Carotid Duplex examination using B-mode, color flow and specral Doppler. The exam was diagnostic. Exam performed in department. VL/Carotid Duplex Ultrasound Interpretation Summary Irregular calcific plaque with shadowing at the proximal right internal carotid artery with less than 50% stenosis. Less than 50% stenosis right external carotid artery Irregular calcific plaque of the proximal left internal carotid artery with les s than 50% stenosis Less than 50% stenosis left external carotid artery Patent and antegrade vertebral arteries bilaterally Ordering Physician: Trena Brandon Performed By: Kevin Iqbal RVT
== END | disposition home or self-care (01) ==
LOC: CVS 09:43
PROVIDERS: PCP Internal Medicine; Referring Provider Nurse Practitioner Gerontology; Visit Provider Nurse Practitioner Gerontology
DX: R42 Dizziness and giddiness (principal); I73.9 Peripheral vascular disease, unspecified; R22.1 Localized swelling, mass and lump, neck
CPT/HCPCS: 93880; 93923

== ENCOUNTER → 2022-03-04 | Outpatient (CLI) | payer MEDICARE, OTHER, SELFPAY ==
[2022-03-04 15:13] LABS: Absolute Lymphocyte Count 2.14 X10^3/uL (0.83-4.51); Absolute Neutrophil Count 3.4 X10^3/uL (2.0-7.7); Basophil# 0.06 X10^3/uL; Eosinophil# 0.15 X10^3/uL; Eosinophils% 2.4 % (0-5); Hematocrit 40.8 % (37-47); Hemoglobin 12.8 g/dL (12.0-15.0); Lymphocyte # 2.14 X10^3/ul (0.83-4.51); Lymphocyte % 34.1 % (19-41); Mean Corp Hgb Conc 31.4 g/dL (32-36); Mean Corpuscular Hgb 29.2 pg (27.0-32.0); Mean Corpuscular Volume 93.2 fL (81-99); Mean Platelet Vol. 11.5 fl (6.2-12.0); NRBC Flagged by Analyzer 0 % (0-5); Neutrophil # 3.41 X10^3/uL (2.7-7.7); Neutrophil % 54.2 % (47-70); Platelet Count 234 K/mm3 (150-450); RBC Distribution Width CV 12.8 % (11.6-14.6); RBC Distribution Width SD 43.8 fl (35.1-43.9); Red Blood Count 4.38 M/mm3 (4.2-5.4); White Blood Count 6.3 K/mm3 (4.4-11.0)
[2022-03-04 15:56] LABS: Anion Gap 6 (5-15); BUN 14 mg/dL (7-18); BUN/Creat Ratio 14.3 RATIO (10-20); Calcium,Total 9.5 mg/dL (8.5-10.1); Chloride 107 mmol/L (98-107); Creatinine, Serum 0.98 mg/dL (0.55-1.02); EST Glomerular Filtration Rate 59 mL/min (>60); Est Glom Filt Rate - Afr Amer 71 mL/min (>60); Glucose 85 mg/dL (74-106); Magnesium 2.4 mg/dL (1.6-2.6); Potassium 4.3 mmol/L (3.5-5.1); Sodium Level 141 mmol/L (136-145); T4 Free Direct 1.04 ng/dL (0.76-1.46); Thyroid Stim Hormone (TSH) 0.84 uIU/mL (0.358-3.74)
== END | disposition home or self-care (01) ==
LOC: LAB 13:26
PROVIDERS: PCP Internal Medicine; Referring Provider Nurse Practitioner Gerontology; Visit Provider Nurse Practitioner Gerontology
DX: R53.83 Other fatigue (principal)
CPT/HCPCS: 80048; 83735; 84439; 84443; 85025

== ENCOUNTER 2024-03-02 05:42 | Day surgery (SDC) | payer MEDICARE, OTHER, SELFPAY ==
[2024-03-02 07:16] VITALS: BP 104/55; BP 120/76; PULSE 64; RESP 16; TEMP 36.3; O2SAT 97
--- NOTE | 2024-03-02 07:17 | OP.COLON_ITS ---
Patient Name: Ericka Walls Procedure Date: 03/02/2024 6:46 AM Date of : 1945 Age: 78 Procedure: Colonoscopy Indications: High risk colon cancer surveillance: Personal history of colon cancer Providers: Bam Arambula MD Medicines: See the Anesthesia note for documentation of the administered medications Patient Profile: Last Colonoscopy: August 2020. Complications: No immediate complications. Procedure: Pre-Anesthesia Assessment: - Prior to the procedure, a History and Physical was performed, and patient medications and allergies were reviewed. The patient's tolerance of previous anesthesia was also reviewed. The risks and benefits of the procedure and the sedation options and risks were discussed with the patient. All questions were answered, and informed consent was obtained. Prior Anticoagulants: The patient has taken no anticoagulant or antiplatelet agents. ASA Grade Assessment: II - A patient with mild systemic disease. After reviewing the risks and benefits, the patient was deemed in satisfactory condition to undergo the procedure. After I obtained informed consent, the scope was passed under direct vision. Throughout the procedure, the patient's blood pressure, pulse, and oxygen saturations were monitored continuously. The Colonoscope was introduced through the anus and advanced to the cecum, identified by appendiceal orifice and ileocecal valve. The colonoscopy was performed without difficulty. The patient tolerated the procedure well. The quality of the bowel preparation was excellent. The ileocecal valve and the appendiceal orifice were photographed. Scope In: 7:02:18 AM Scope Withdrawal Time 0 hours 6 minutes 10 seconds Scope Out: 7:12:05 AM Total Procedure Duration Time 0 hours 9 minutes 47 seconds Findings: The digital rectal exam findings include non-thrombosed external hemorrhoids, non-thrombosed internal hemorrhoids and internal hemorrhoids that prolapse with straining, but spontaneously regress to the resting position (Grade II). There was evidence of a prior end-to-end colo-colonic anastomosis in the mid rectum. This was patent and was characterized by healthy appearing mucosa. The exam was otherwise without abnormality. Impression: - Non-thrombosed external hemorrhoids, non-thrombosed internal hemorrhoids and internal hemorrhoids that prolapse with straining, but spontaneously regress to the resting position (Grade II) found on digital rectal exam. - Patent end-to-end colo-colonic anastomosis, characterized by healthy appearing mucosa. - The examination was otherwise normal. - No specimens collected. Recommendation: - Discharge patient to home. - Resume previous diet. - Continue present medications. - Repeat colonoscopy in 3 years for surveillance. Procedure Code(s): --- Professional --- 71673, Colonoscopy, flexible; diagnostic, including collection of specimen(s) by brushing or washing, when performed (separate procedure) Diagnosis Code(s): --- Professional --- Z85.038, Personal history of other malignant neoplasm of large intestine K64.1, Second degree hemorrhoids K64.4, Residual hemorrhoidal skin tags Z98.0, Intestinal bypass and anastomosis status CPT copyright 2021 [employer]. All rights reserved. The codes documented in this report are preliminary and upon hydrotherapist review may be revised to meet current compliance requirements. Bam Arambula MD 03/02/2024 7:17:00 AM This report has been signed electronically. Number of Addenda: 0 Note Initiated On: 03/02/2024 6:46 AM
--- NOTE | 2024-03-02 07:17 | OP.CCLET_ITS ---
03/02/2024 Lainey Burton [id number] [place] [address] Re : Colonoscopy procedure for Ericka Walls Dear Dr. Burton This procedure was performed on Saturday, March 02, 2024. My impressions and recommendations are as follows: Impressions : - Non-thrombosed external hemorrhoids, non-thrombosed internal hemorrhoids and internal hemorrhoids that prolapse with straining, but spontaneously regress to the resting position (Grade II) found on digital rectal exam. - Patent end-to-end colo-colonic anastomosis, characterized by healthy appearing mucosa. - The examination was otherwise normal. - No specimens collected. Recommendations : - Discharge patient to home. - Resume previous diet. - Continue present medications. - Repeat colonoscopy in 3 years for surveillance. My findings are described in the full procedure note, which is enclosed. If I can be of further assistance, please feel free to contact me at Doctor phone number(s): Work: . Sincerely, Bam Arambula MD 03/02/2024 7:17:00 AM This report has been signed electronically.
--- NOTE | 2024-03-02 07:17 | PCM.POST.ANE ---
Anesthesia: Postop Eval I Current Vital Signs Temperature: 97.4 F Pulse Rate: 62 Blood Pressure: 104/55 Respiratory Rate: 16 Pulse Ox: 98 Oxygen Delivery Method: Room Air Assessment Airway patent: Yes Spontaneous unlabored respirations: Yes Mental status: Awake and Calm nausea: No Vomiting: No Anesthesia Complication: No Fluid Hydration Crystalloid volume administer (ml): 400 Total IV fluid infused: 400 Progress Note Anesthesia document: Postop Eval 1 completed: Yes
[2024-03-02 07:20] VITALS: BP 104/55; BP 120/76; BP 82/47; PULSE 62; PULSE 63; RESP 16; TEMP 36.3; O2SAT 98
[2024-03-02 07:25] VITALS: BP 120/76; BP 99/66; PULSE 88; RESP 16; O2SAT 95
[2024-03-02 07:30] VITALS: BP 107/70; BP 120/76; PULSE 72; RESP 16; TEMP 36.1; O2SAT 95
--- NOTE | 2024-03-02 07:34 | PCM.PRE.AN2 ---
ASA Classification* ASA Classification ASA Classification: 2 Assessment & Plan Anesthesia* Anesthesia Assessment Anesthesia Assessment: Discussed sedation and/or anesthesia options, risks, benefits, and alternatives with patient/parents/legal guardian/POA. Questions invited. The patient/parents/legal guardian/POA seems to understand and agrees to proceed with anesthesia plan. Reviewed the physical assessment, medical history, allergy history and patient home medications list prior to surgery/procedure/anesthetic and documented any changes. Performed airway and anesthesia risk assessments. Anesthesia Type Anesthesia Type: MAC (see written pre anesthesia record for complete assessment) Pre-Assessment Diagnosis/Proposed Procedure Planned Operative Procedure(s): CSCOPE Anesthesia History Anesthesia History - patternmaker sample: Anesthesia History - patternmaker sample Hx Hospitalization No 02/24/24 14:53 Any Problems With Anesthesia No 02/24/24 14:53 Cholinesterase deficiency No 02/24/24 14:53 You/Your Family Experience No 02/24/24 14:53 fever (hyperthermia) with Relationship Recent Exposure to Contagious No 01/10/21 07:25 Disease Does patient have nerve No 02/24/24 14:53 stimulator Patient instructed to have device shut off --Does patient have Pacemaker or ICD? When Was Last Pacemaker Check QUESTION #4 FULL TEXT: You/Your Family Experience fever (hyperthermia) with Anesthesia Last Oral Intake Last Oral intake: Last Oral Intake NPO since Meds taken in AM with sips of water? Meds patient instructed to take am of surgery PONV PONV - patternmaker sample: PONV - patternmaker sample Female Yes 02/24/24 14:53 HX of Motion Sickness No 02/24/24 14:53 HX of N/V After Surgery No 02/24/24 14:53 Non-Smoker Yes 02/24/24 14:53 Duration of Surgery greater No 02/24/24 14:53 than 60 minutes Number of Risk Factors 2 02/24/24 14:53 PONV Score Moderate Risk 02/24/24 14:53 Height & Weight Height & Weight: Anesthesia: Height & Weight Height 5 ft 5 in 02/04/24 14:03 Respiratory Assessment Respiratory Assessment - patternmaker sample: Respiratory Tract Infection Hx - patternmaker sample Hx Respiratory Tract Infection No 02/24/24 14:53 STOP Sleep Apnea STOP Sleep Apnea - patternmaker sample: STOP Sleep Apnea - patternmaker sample Hx Hypertension No 02/24/24 14:53 Hx Sleep Apnea No 03/02/24 07:30 CPAP No 03/02/24 07:16 BIPAP Do you snore loudly (louder No 02/24/24 14:53 than talking or can be heard Do you often feel tired/ Yes 02/24/24 14:53 fatigued/ sleepy during daytime? Has anyone observed you stop No 02/24/24 14:53 breathing during sleep? STOP Results Negative 03/02/24 07:16 QUESTION #5 FULL TEXT : Do you snore loudly (louder than talking or can be heard through closed doors)? 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 Specify any problems Hx of Preganancy in last 3 No 02/24/24 14:53 Months Nurse Filling Out Transfusion DSCHRIBER 02/24/24 14:53 & Questions: Date: 02/24/24 02/24/24 14:53 Time: 14:55 02/24/24 14:53 Patient unable to answer at this time (ie. confused, unrespo /Reproduction History /Reproductive History - patternmaker sample: /Reproductive Hx- patternmaker sample Hx Now No 02/24/24 14:53 Gestational Age (in weeks): EDC: Hx Hx Para Hx Section SAB No 02/24/24 14:53 Active Medications Active Medications: Current Medications Generic Name Dose Route Start Last Admin Trade Name Freq PRN Reason Stop Dose Admin Heparin Sodium (Beef Lung) 50 units 03/02/24 07:23 Heparin Pf Lock 10 Units/Ml 50 Units/5 Ml Syringe IV UD PRN Port-a-Cath (VAD)Heparin Flush Sodium Chloride 10 - 40 ml 06/25/24 07:23 0.9 % Nacl (Sterile) Posiflush 10 Ml IV UD PRN Port access or dressing change Sodium Chloride 10 - 40 ml 03/02/24 07:23 0.9% Saline Lock 10 Ml Syringe IV UD PRN Port-a-Cath (VAD) Flush Anesthesia Focused Assessment* Temperature: 97 F Pulse Rate: 72 Blood Pressure: 107/70 Respiratory Rate: 16 Pulse Ox: 95 Airway Assessment Mouth opens: 2 cm Mallampati Score: II Focused Labs Anesthesia Preop lab: CBC WBC 6.3 K/mm3 (4.4-11.0) 03/04/22 13:30 RBC 4.38 M/mm3 (4.2-5.4) 03/04/22 13:30 Hgb 12.8 g/dL (12.0-15.0) 03/04/22 13:30 Hct 40.8 % (37-47) 03/04/22 13:30 Plt Count 234 K/mm3 (150-450) 03/04/22 13:30 CHEMISTRY Potassium 4.3 mmol/L (3.5-5.1) 03/04/22 13:30 Sodium 141 mmol/L (136-145) 03/04/22 13:30 Magnesium 2.4 mg/dL (1.6-2.6) 03/04/22 13:30 BUN 14 mg/dL (7-18) 03/04/22 13:30 Creatinine 0.98 mg/dL (0.55-1.02) 03/04/22 13:30 Glucose 85 mg/dL (74-106) 03/04/22 13:30 POC Glucose 76 mg/dL (70-110) 03/08/19 06:02 TSH 0.84 uIU/mL (0.358-3.74) 03/04/22 13:30 COAG PT 13.4 SECONDS (11.7-14.9) 11/25/17 04:25 Review of Systems (Anesthesia) ROS Narrative System reviewed and no additional complaints, except as documented. [facility] Medical History Bladder disease High cholesterol Easy bruising Restless legs Difficulty swallowing History of hiatal hernia Gastric reflux Leg cramps History of echocardiogram Cardiology follow-up encounter History of atrial fibrillation Metastatic cancer to intra-abdominal lymph nodes Post-menopausal Non-smoker DVT (deep venous thrombosis) Change in bowel habit Recurrent ventral incisional hernia Gallstones Multinodular thyroid Incisional hernia Hyperlipemia History of colon cancer GERD (gastroesophageal reflux disease) Home Medications ?Medication ?Instructions ?Recorded ?Last Taken ?Type rosuvastatin 5 mg tablet (Crestor) 5 mg PO QHS 10/16/21 Unknown History calcium citrate 200 mg 4 tab PO DAILY 12/30/22 Unknown History calcium-vitamin D3 6.25 mcg (250 unit) tablet (Citracal-D3 Petites) cholecalciferol (vitamin D3) 25 50 mcg PO DAILY 12/30/22 Unknown History mcg (1,000 unit) capsule multivitamin 1 cap PO DAILY 12/30/22 Unknown History aspirin 325 mg tablet 325 mg PO DAILY 06/30/23 Unknown History famotidine 20 mg tablet 20 mg PO DAILY PRN GERD 06/30/23 Unknown History metoprolol succinate 25 mg 25 mg PO 1300 02/24/24 Unknown History tablet,extended release 24 hr Allergy/AdvReac Type Severity Reaction Status Date / Time oxaliplatin Allergy Intermediate nausea and Verified 02/24/24 14:51 vomiting clavulanic acid (From Allergy Mild FACE Verified 02/24/24 14:51 Augmentin) SWELLING, BRIGHT RED iodine Allergy Mild Rash Verified 02/24/24 14:51 promethazine (From Phenergan) Allergy Mild CANNOT Verified 02/24/24 14:51 RECALL codeine Allergy Unknown INSOMNIA, Verified 02/24/24 14:51 RESTLESSNESS ondansetron (From Zofran (as Allergy Unknown SEVERE Verified 02/24/24 14:51 hydrochloride)) RESTLESS LEG IV ZOFRAN, CAN TOLERATE PO prednisone AdvReac Intermediate PT UNSURE Verified 02/24/24 15:05 OF REACTION mannitol (From Zometa) AdvReac Rash, Verified 02/24/24 14:51 Rapid Pulse water for injection,sterile AdvReac Rash, Verified 02/24/24 14:51 (From Zometa) Rapid Pulse zoledronic acid (From Zometa) AdvReac Rash, Verified 02/24/24 14:51 Rapid Pulse Family History Father Cancer Testicular cancer Brother Colon cancer Mother Heart disease Son Heart disease Surgical History H/O ileostomy (08/2017) History of tonsillectomy History of incisional hernia repair History of reversal of ileostomy (03/2019) History of cholecystectomy (03/2019) History of appendectomy (03/2019) History of colonoscopy (01/2019) Port-A-Cath in place Social History household members: none Smoking Status: Never smoker second hand exposure: No alcohol intake: current alcohol intake frequency: holidays/special occasions only Alcohol type: wine substance use type: does not use caffeine: Yes Type: other Number of servings: 1 seatbelt use: always
[2024-03-02 07:35] VITALS: BP 107/70; PULSE 72; RESP 16; TEMP 36.1; O2SAT 95
--- NOTE | 2024-03-02 07:51 | PCM.POSTANE2 ---
Anesthesia Postop Eval I Sum Postop Eval Completion status Anesthesia document: Postop Eval 1 completed: Yes Anesthesia Postop Eval I Summary Anesthesia Postop Eval I Summary: Anesthesia Postop Eval I: Assessment Summary Airway patent Yes 03/02/24 07:20 [email or web address] Spontaneous unlabored Yes 03/02/24 07:20 [email or web address] respirations Mental status Awake,Calm 03/02/24 07:20 [email or web address] nausea No 03/02/24 07:20 [email or web address] Vomiting No 03/02/24 07:20 [email or web address] Anesthesia Postop Eval I: Fluid Summary Crystalloid volume administer 400 03/02/24 07:20 [email or web address] (ml) Colloids volume administered ( ml) Blood Product volume administered (ml) Total IV fluid infused 400 03/02/24 07:20 [email or web address] Anesthesia Postop Eval I: Summary Notes Anesthesia Complication No 03/02/24 07:20 [email or web address] Anesthesia Complication Comment: Post-operative progress note Anesthesia: Postop Eval II Evaluation Mental status: Awake Pain Level: 0 nausea: No Vomiting: No Complications Anesthesia Complication: No
[2024-03-02] MEDS: 0.9 % NaCl (Sterile) Posiflush 10 mL IV (07:58)
[2024-03-02 08:01] VITALS: BP 120/76
== END 2024-03-02 08:13 | disposition home or self-care (01) ==
LOC: EN 07:06 → AC 07:06
PROVIDERS: PCP Internal Medicine; Referring Provider Internal Medicine; Visit Provider Surgery
PROC: 0DJD8ZZ Inspection of Lower Intestinal Tract, Via Natural or Artificial Opening Endoscopic (ICD-10-PCS; CPT 45378; principal; 2024-03-02 06:25)
DX: Z12.11 Encounter for screening for malignant neoplasm of colon (principal); K64.4 Residual hemorrhoidal skin tags; K64.1 Second degree hemorrhoids; E78.00 Pure hypercholesterolemia, unspecified; Z79.899 Other long term (current) drug therapy; Z85.038 Personal history of other malignant neoplasm of large intestine; Z86.718 Personal history of other venous thrombosis and embolism
CPT/HCPCS: 45378; J7120; A4216; J2405